=== PATIENT | male | born 1980 | race Caucasian/White ===

== ENCOUNTER 2019-12-18 10:26 | Emergency (ER) | payer OTHER, SELFPAY ==
[2019-12-18] VITALS (10 sets, daily range): BP systolic 91–123; BP diastolic 62–83; PULSE 52–92; RESP 16–22; TEMP 37.2; O2SAT 96–98
--- NOTE | ~2019-12-18 | XR_ITS ---
EXAMINATION: XR chest 1V portable EXAM DATE: 12/18/2019 12:17 INDICATION: Seizure. TECHNIQUE: Portable AP frontal chest x-ray was obtained. There is no prior study for comparison. FINDINGS: The lungs are clear. There are no pleural effusions. Cardiomediastinal silhouette is norm al. There is no pneumothorax suspected. The bones and soft tissues are unremarkable. IMPRESSION: No acute cardiopulmonary findings. Reviewed, dictated and finalized at location B.
--- NOTE | ~2019-12-18 | CT_ITS ---
EXAMINATION: CT brain wo con EXAM DATE: 12/18/2019 11:11 INDICATION: Seizure, left sided hematoma. Altered mental status. TECHNIQUE: Spiral CT of the head was performed without contrast. Axial, coronal and sagittal images were reviewed. The dose-length product (DLP) for this examination was 605.33 mGy-cm. The exposure w as tailored according to patient size, and iterative reconstruction (ASIR) was used as additional dos e reduction technique. There is no prior study for comparison. FINDINGS: There is no acute intraparenchymal hemorrhage. No evidence of intraparenchymal brain mass lesion. No evidence of acute infarction. There is no mass effect or midline shift. The ventricles are normal in size. There are no extra-axial collections. There are no acute calvarial fractures. T he orbits are unremarkable. Soft tissue is unremarkable. The visualized sinuses and mastoid air ramo ls are well aerated. IMPRESSION: 1. No acute intracranial findings. Reviewed, dictated and finalized at location A.
--- NOTE | 2019-12-18 10:37 | ED.SEIZURE ---
HPI - Seizure General Chief Complaint: Seizure Stated Complaint: SZ Time Seen by Provider: 12/18/19 10:28 Source: patient, EMS and RN notes reviewed Mode of arrival: EMS Limitations: other (pt is post-ictal) History of Present Illness HPI Narrative: Pt is a 39 y/o male with a Hx of seizures, who presents to the ED via EMS with c/o seizure happening earlier today. He notes that he is currently prescribed Keppra for his seizures, but states that he has recently been in correction and hasn't taken the medication for the past week. According to the nurse, the pt was seizing throughout the night last night. EMS notes that the pt then sustained a roughly 2 minute long seizure this morning. The nurse states that the pt was unresponsive to sternal rub this morning, which prompted him to be sent to the ED. Pt currently reports a lt sided headache, nausea, and SOB, but denies any CP or ABD pain. HPI limited due to the pt being post-ictal. MD complaint: seizure Duration of episode: 2 -: minutes(s) Seizure History: Yes Place: correction Possible Precipitating Event: other (lack of Keppra) Associated symptoms: shortness of breath and other (lt sided headache; nausea) Related Data Home Medications Medication Instructions Recorded Confirmed levetiracetam 1,000 mg PO 12/18/19 Allergies Allergy/AdvReac Type Severity Reaction Status Date / Time No Known Allergies Allergy Verified 12/18/19 11:21 Review of Systems Review of Systems: All systems reviewed & are unremarkable except as noted in HPI and below Cardiovascular: Cardiovascular: Denies chest pain Respiratory: Respiratory: Reports dyspnea Gastrointestinal: Gastrointestinal: Denies abdominal pain and Reports nausea Neurologic: Reports headache(s) (lt sided) and Reports other (seizure) [facility] Past Medical History Medical History Seizures Surgical History Surgical History No significant past surgical history Social History Social History Smoking packs per day: 1 Smoking cigarettes per day: 20.0 Smoking status: Current every day smoker Substance use type: marijuana Gender identity (if verbalized by the patient): Male Exam Const: General: no acute distress and alert HENMT: Head: normocephalic and other (left forehead hematoma) Ears: hearing grossly normal bilaterally and external ears normal General nose exam: Normal external nose present and Normal nares present Face and sinus: sinuses nontender and face symmetric Mouth: Yes Normal oral and palatal mucosa present Throat: posterior oropharynx normal Eyes: Conjunctivae: conjunctivae normal Pupils: Equal, round and reactive pupils present EOM: EOMs intact bilaterally Resp: Effort & Inspection: normal respiratory effort, not tachypneic and no use of accessory muscles Auscultation: clear to auscultation bilaterally Cardio: Rate: regular rate Rhythm: regular rhythm Heart sounds: no murmurs Skin: General skin exam: normal color Rashes: no rashes Neuro: General: moves all extremities, no focal motor deficits and CN's II-XI intact bilaterally Speech: normal speech Other: oriented to self and place Course Reevaluation(s) Reevaluation #1: Patient is now able to answer all questions. His father is at bedside and he states patient is at baseline and he appears to be normal. Patient has leukocytosis which is likely stress reaction. Date: 12/18/19 Time: 14:36 Vital Signs Vital signs: Vital Signs Pulse Rate 59 L 12/18/19 10:33 Respiratory Rate 19 12/18/19 10:33 Blood Pressure 116/83 12/18/19 10:33 Pulse Oximetry 96 12/18/19 10:33 Temperature 99 F 12/18/19 10:35 Pulse Rate 71 12/18/19 14:47 Respiratory Rate 20 12/18/19 14:47 Blood Pressure 103/65 12/18/19 14:47 Pulse Oximetry 98 12/18/19 14:47 MDM - Seizure Lab Data R
--- NOTE | 2019-12-18 10:45 | ECG_ITS ---
Measurements Intervals [place] Rate: 57 P: 37 WI: 186 QRS: 49 QRSD: 100 T: 43 QT: 387 QTc: 377 Interpretive Statements SINUS BRADYCARDIA WITH SINUS ARRHYTHMIA BASELINE ARTIFACT- I, II, III, AVR, V2 BORDERLINE ECG Electronically Signed On 12-18-2019 11:37:42 CDT by Jerome Spence D.O.
[2019-12-18] MEDS: LACTATED RINGERS 1,000 ML 999 ML IV CONT (11:17)
[2019-12-18] MEDS: levETIRAcetam 1000MG/NACL100ML 1,000 MG/100 ML BAG 400 MG IVPB (11:17)
[2019-12-18 11:46] LABS: Basophils Percent Auto 0.2 % (0.2-1.2); Hematocrit 45.1 % (42.0-52.0); Hemoglobin 14.8 g/dL (14.0-18.0); Immature Granulocyte Absolute 0.08 K/mm3 (0.00-0.031); Immature Granulocyte Percent A 0.4 % (0-0.5); Lymphocytes Absolute Auto 0.64 K/mm3 (0.9-3.2); Lymphocytes Percent Auto 2.9 % (18.3-44.2); Mean Corpuscular HGB Conc 32.8 g/dl (32-36); Mean Corpuscular Hemoglobin 31.2 pg (26-34); Mean Corpuscular Volume 95.1 fl (80-100); Mean Platelet Volume 9.6 fl (7.4-10.4); Monocytes Absolute Auto 1.5 K/mm3 (0.1-0.6); Monocytes Percent Auto 6.5 % (2.6-8.5); Neutrophils Absolute Auto 20.1 K/mm3 (1.3-6.7); Platelet Count Result 270 k/mm3 (150-375); Red Blood Count 4.74 M/mm3 (4.6-6.20); Red Cell Distribution Width 13.7 % (11.5-14.5); White Blood Count 22.3 K/mm3 (4.5-10.0)
[2019-12-18 11:58] LABS: Alanine Aminotransferase 17 U/L (4-50); Albumin Level 4.5 g/dL (3.5-5.1); Alkaline Phosphatase 80 U/L (38-126); Aspartate Amino Transferase 31 U/L (17-59); Bilirubin,Total 0.5 mg/dL (0.2-1.3); Blood Urea Nitrogen 17 mg/dL (9-20); Calcium 9.7 mg/dL (8.4-10.2); Carbon Dioxide 26 mmol/L (22-30); Chloride 104 mmol/L (98-107); Estimated CRCL calculation 74 ml/min; Estimated Glomerular Filt Rate > 60; Glucose 102 mg/dL (75-110); Sodium 138 mmol/L (137-145)
[2019-12-18 13:29] LABS: Add Urine Microscopic? YES; Amorphous Sediment Urine Few; Appearance Urine Turbid (Clear); Bilirubin Urine Negative (Negative); Blood Urine Negative (Negative); Color Urine Yellow (Yellow); Glucose Urine UA Negative (Negative); Ketones Urine Trace mg/dL (Negative); Leukocyte Esterase Ur Negative LEU/UL (Negative); Mucus Urine Rare /lpf; Nitrate Urine Negative (Negative); Protein Urine 1+ mg/dL (Negative); RBC Urine 0-2 /hpf (0-2); Specific Grav Ur 1.019 (1.001-1.035); Urobilinogen Urine Negative mg/dL (<2.0)
[2019-12-18 13:54] LABS: Barbiturate Screen Urine Negative (Negative); Benzodiazepines Screen Urine Negative (Negative)
[2019-12-18 13:56] LABS: Amphetamine Screen Urine Negative (Negative); Cannabinoid Screen Urine Positive (Negative); Cocaine Screen Urine Negative (Negative); Methadone Screen Urine Negative (Negative); Opiate Screen Urine Negative (Negative); Phencyclidine Screen Urine Negative (Negative)
== END 2019-12-18 14:48 | disposition home or self-care (01) ==
PROVIDERS: Emergency Provider General Practice
DX: G40.909 Epilepsy, unspecified, not intractable, without status epilepticus (principal); F17.210 Nicotine dependence, cigarettes, uncomplicated
CPT/HCPCS: 36415; 70450; 71045; 80053; 80307; 81001; 85025; 93005; 96361; 96365; 96375; 99284; J0131; J1953; J7120

== ENCOUNTER 2020-09-12 12:49 | Emergency (ER) | payer OTHER, SELFPAY ==
--- NOTE | ~2020-09-12 | CT_ITS ---
EXAMINATION: CT brain wo con DATE: 09/12/2020 13:35 INDICATION: Seizure TECHNIQUE: Computed tomography (CT) of the head was performed without intravenous contrast. Sagittal and coronal reconstructions were performed. The mA was adjusted according to patient size. Iterative reconstruction technique was employed. The dose-length product was 605.33 mGy-cm. COMPARISON: head CT dated 12/18/2019 FINDINGS: No acute intracranial hemorrhage, acute infarction or abnormal extra axial fluid collection. Ventricl es are normal and symmetric. No mass/mass effect. The orbits, paranasal sinuses and mastoid air cells are normal. IMPRESSION: 1. Normal head CT. Reviewed, dictated and finalized at location A. RDS MANAGEMENT COORDINATOR IMPRESSION: 1. Normal head CT.
[2020-09-12 12:53] VITALS: BP 112/74; PULSE 96; RESP 16; O2SAT 96
[2020-09-12 13:07] VITALS: BP 107/71; PULSE 80; RESP 22; O2SAT 95
[2020-09-12] MEDS: levETIRAcetam 1000MG/NACL100ML 1,000 MG/100 ML BAG 400 MG IVPB (13:10)
--- NOTE | 2020-09-12 13:10 | ECG_ITS ---
Measurements Intervals [place] Rate: 81 P: 62 MI: 146 QRS: 56 QRSD: 96 T: 58 QT: 352 QTc: 411 Interpretive Statements SINUS RHYTHM WITH SINUS ARRHYTHMIA PEAKED T WAVES- CONSIDER HYPERKALEMIA OR ISCHEMIA BASELINE ARTIFACT- I, II, III, AVR, AVL, AVF, V1, V6 ABNORMAL ECG Electronically Signed On 09-12-2020 16:41:53 YARD DEMURRAGE CLERK by Jerome Spence D.O.
[2020-09-12 13:12] VITALS: BP 112/74; PULSE 80; RESP 18; TEMP 36.4; O2SAT 96
[2020-09-12 13:17] LABS: Basophils Absolute Auto 0.1 K/mm3 (0.0-0.1); Basophils Percent Auto 0.4 % (0.2-1.2); Eosinophils Percent Auto 0.1 % (0-4.4); Hematocrit 48.6 % (42.0-52.0); Hemoglobin 16.7 g/dL (14.0-18.0); Immature Granulocyte Absolute 0.05 K/mm3 (0.00-0.031); Immature Granulocyte Percent A 0.3 % (0-0.5); Lymphocytes Absolute Auto 0.82 K/mm3 (0.9-3.2); Lymphocytes Percent Auto 5.4 % (18.3-44.2); Mean Corpuscular HGB Conc 34.4 g/dl (32-36); Mean Corpuscular Hemoglobin 32.1 pg (26-34); Mean Corpuscular Volume 93.5 fl (80-100); Mean Platelet Volume 9.3 fl (7.4-10.4); Monocytes Absolute Auto 0.8 K/mm3 (0.1-0.6); Monocytes Percent Auto 5.2 % (2.6-8.5); Neutrophils Absolute Auto 13.5 K/mm3 (1.3-6.7); Neutrophils Percent Auto 88.6 % (45.5-73.1); Platelet Count Result 302 k/mm3 (150-375); Red Cell Distribution Width 13.4 % (11.5-14.5); White Blood Count 15.2 K/mm3 (4.5-10.0)
--- NOTE | 2020-09-12 13:17 | PC.NURSE ---
Per [employer] officer pt's mother paid his david and he is no longer in custody.
[2020-09-12 13:28] LABS: Anion Gap 11 mmol/L (8-16); Blood Urea Nitrogen 19 mg/dL (9-20); Carbon Dioxide 26 mmol/L (22-30); Chloride 103 mmol/L (98-107); Estimated CRCL calculation 79 ml/min; Estimated Glomerular Filt Rate > 60; Glucose 118 mg/dL (75-110); Potassium 4.4 mmol/L (3.4-5.0); Sodium 140 mmol/L (137-145)
--- NOTE | 2020-09-12 13:32 | PC.NURSE ---
Pt to CT via stretcher.
--- NOTE | 2020-09-12 13:53 | ED.GENADULT ---
HPI - General Adult General Chief complaint: Seizure Stated complaint: SEIZURE History of Present Illness HPI narrative: Patient is a 40-year-old male who presents ER after having a seizure while in detention. Patient was in custody and refused Keppra administration from the staff. He does have history of epilepsy. He was waiting for his mom to bail him out today but he had a seizure before that could occur. Reports pain to his head where there is obvious signs of him striking the ground. Denies any other issues at this time. Related Data Home Medications Medication Instructions Recorded Confirmed levetiracetam 1,000 mg PO 12/18/19 Allergies Allergy/AdvReac Type Severity Reaction Status Date / Time No Known Allergies Allergy Verified 09/12/20 13:22 Review of Systems Review of Systems: All systems reviewed & are unremarkable except as noted in HPI and below Constitutional: Constitutional: Denies chills, Denies fever(s) and Denies weakness ENT: Denies nasal congestion and Denies sore throat Cardiovascular: Cardiovascular: Denies chest pain and Denies radiating jaw, neck or arm pain Respiratory: Respiratory: Denies cough and Denies dyspnea Neurologic: Reports headache(s), Denies focal weakness and Denies numbness Comments: Seizure PMFSH Past Medical History Medical History (Updated 09/12/20 @ 14:51 by Woo Funez MD) Seizures Surgical History Surgical History No significant past surgical history Social History Social History Smoking packs per day: 1 Smoking cigarettes per day: 20.0 Smoking status: Current every day smoker Substance use type: marijuana Gender identity (if verbalized by the patient): Male Exam Narrative: Exam Narrative: GENERAL: Well-appearing, well-nourished, and in no acute distress. HEAD: Normocephalic, abrasions to the top of the head as well as forehead. EYES: PERRLA and EOMI. ENT: Mucous membranes moist. NECK: Supple. CHEST: Clear to auscultation. No respiratory distress. HEART: Regular rate and rhythm. No murmur heard. Normal peripheral pulses. ABDOMEN: Soft, nontender, nondistended. EXTREMITIES: Normal range of motion. No edema. NEURO: No focal deficits. Alert and oriented x3.. Course Course Emergency Course: Patient no longer in police custody. Has no complaints. Loaded with Keppra. Reports he has access to medication at home. Discharge at this time. Vital Signs Vital signs: Vital Signs Temperature 97.5 F L 09/12/20 13:12 Pulse Rate 80 09/12/20 13:12 Respiratory Rate 18 09/12/20 13:12 Blood Pressure 112/74 09/12/20 13:12 Pulse Oximetry 96 09/12/20 13:12 Temperature 97.5 F L 09/12/20 13:12 Pulse Rate 80 09/12/20 13:12 Respiratory Rate 18 09/12/20 13:12 Blood Pressure 112/74 09/12/20 13:12 Pulse Oximetry 96 09/12/20 13:12 Medical Decision Making Vital Signs Vital Signs: Vital Signs Temperature 97.5 F L 09/12/20 13:12 Pulse Rate 80 09/12/20 13:12 Respiratory Rate 18 09/12/20 13:12 Blood Pressure 112/74 09/12/20 13:12 Pulse Oximetry 96 09/12/20 13:12 Temperature 97.5 F L 09/12/20 13:12 Pulse Rate 80 09/12/20 13:12 Respiratory Rate 18 09/12/20 13:12 Blood Pressure 112/74 09/12/20 13:12 Pulse Oximetry 96 09/12/20 13:12 Lab Data Result diagrams: 09/12/20 13:10 09/12/20 13:10 Labs: Lab Results 09/12/20 09/12/20 Range/Units 13:10 13:10 WBC 15.2 H (4.5-10.0) K/mm3 RBC 5.20 (4.6-6.20) M/mm3 Hgb 16.7 (14.0-18.0) g/dL Hct 48.6 (42.0-52.0) % MCV 93.5 (80-100) fl MCH 32.1 (26-34) pg MCHC 34.4 (32-36) g/dl RDW 13.4 (11.5-14.5) % Plt Count 302 (150-375) k/mm3 MPV 9.3 (7.4-10.4) fl Immature Gran % (Auto) 0.3 (0-0.5) % Neut % (Auto) 88.6 H (45.5-73.1) % Lymph % (Auto) 5.4 L (18.3-44.2) % Mo
[2020-09-12 14:38] VITALS: BP 111/67; PULSE 101; RESP 17; O2SAT 98
[2020-09-12 14:45] VITALS: PULSE 68; RESP 18
[2020-09-12 15:00] VITALS: PULSE 65; RESP 18; O2SAT 97
== END 2020-09-12 15:05 | disposition home or self-care (01) ==
PROVIDERS: Emergency Provider Emergency Medicine
DX: G40.909 Epilepsy, unspecified, not intractable, without status epilepticus (principal); F17.210 Nicotine dependence, cigarettes, uncomplicated; R94.31 Abnormal electrocardiogram [ECG] [EKG]
CPT/HCPCS: 36415; 70450; 80048; 85025; 93005; 96365; 99284; J1953

== ENCOUNTER 2020-09-20 06:34 | Outpatient (CLI) | payer OTHER, SELFPAY ==
--- NOTE | 2020-09-20 12:22 | P.NEURO_ITS ---
Neurology EEG Report General Information Date of Study: 09/20/20 TEST eeg DIAGNOSIS seizures CONDITION OF RECORDING awake drowsy and sleep EEG NUMBER [id number]- CLINICAL HISTORY patient reported that he had grand mal seizures which started about 4 years ago. Usually well controlled except when under extra stress. EEG DESCRIPTION basic resting occipital frequency consists of 8 to 10 hertz per 2nd alpha of medium voltage admixed with low-voltage 15 to 18 hertz per 2nd beta. Bilateral symmetrical sleep activity seen during sleep. Hyperventilation not done. Photic stimulation produced normal drive. Non paroxysmal. Nonfocal. Nonlatera lizing. IMPRESSION no significant abnormalities noted
== END 2020-09-20 06:35 | disposition home or self-care (01) ==
LOC: ANHNEURO 06:37
PROVIDERS: PCP Internal Medicine Infectious Disease; Visit Provider Psychiatry & Neurology Neurology
DX: R56.9 Unspecified convulsions (principal)
CPT/HCPCS: 95816

== ENCOUNTER 2022-07-15 09:52 | Emergency (ER) | payer BC, OTHER, SELFPAY ==
--- NOTE | ~2022-07-15 | CT_ITS ---
EXAMINATION: CT brain wo con DATE: 07/15/2022 10:19 INDICATION: Seizure. TECHNIQUE: Computed tomography (CT) of the head was performed without intravenous contrast. The mA wa s adjusted according to patient size. Iterative reconstruction technique was employed. The dose-lengt h product was 605.33 mGy-cm. COMPARISON: Head CT 09/12/2020 FINDINGS: There is no intracranial hemorrhage, acute infarction, or abnormal intracranial mass lesion . The ventricles are normal in size. There is mild mucosal thickening in the paranasal sinuses. The o rbits are normal. The mastoid air cells are normal. IMPRESSION: 1. Normal brain. Reviewed, dictated and finalized at location A. IMPRESSION: 1. Normal brain.
--- NOTE | 2022-07-15 09:49 | ED.SEIZURE ---
HPI - Seizure General Chief Complaint: Seizure Stated Complaint: Seizure Source: patient and EMS Mode of arrival: EMS Limitations: no limitations History of Present Illness HPI Narrative: Patient is a 42-year-old male with history of seizure disorder on Keppra presenting to the emergency department for evaluation of witnessed seizure this morning. Patient states that he was at a court hearing when he lost consciousness, having a witnessed tonic-clonic seizure. EMS was contacted, patient was postictal at the time of their arrival. At the time of arrival to the emergency department, patient is awake, alert, oriented. He denies any complaint aside from mild headache pain. Patient does have abrasions to his face. He denies tongue laceration. No urinary incontinence. Patient states he usually takes Keppra twice daily but missed his dose last night. He denies recent illness, fever, chills, abdominal pain, nausea, vomiting or urinary symptoms. Patient denies any extremity pain. He is unsure of his tetanus status. Related Data Home Medications Medication Instructions Recorded Confirmed levetiracetam 1,000 mg tablet 1,000 mg PO 12/18/19 09/18/21 Allergies Allergy/AdvReac Type Severity Reaction Status Date / Time poison norman extract Allergy Intermediate Rash Verified 07/15/22 10:03 Review of Systems Review of Systems: CONSTITUTIONAL: Denies fever, chills, or sweats. EYES: Denies visual changes, redness, or discharge. ENT: Denies rhinorrhea, congestion, sore throat, or otalgia. CARDIOVASCULAR: Denies chest pain, palpitations, or edema. RESPIRATORY: Denies cough or dyspnea. GASTROINTESTINAL: Denies abdominal pain, nausea, vomiting, or diarrhea. GENITOURINARY: Denies dysuria or hematuria. SKIN: Denies rash or itching. Reports forehead abrasion. MUSCULOSKELETAL: Denies back pain, joint pain, or myalgia. NEUROLOGIC: Denies headache, numbness, or weakness. [facility] Past Medical History Medical History Carpal tunnel syndrome Seizures Surgical History Surgical History No significant past surgical history Social History Social History Smoking packs per day: 1 Smoking cigarettes per day: 20.0 Smoking status: Current every day smoker Substance use type: marijuana Gender identity (if verbalized by the patient): Male Exam Narrative: GENERAL: Awake, alert, conversant HEAD: Normocephalic, abrasion to nasal bridge and left forehead. No laceration. EYES: PERRLA and EOMI. ENT: Nares clear, no rhinorrhea or epistaxis. Mucous membranes moist. Eye is in alignment. No malocclusion. NECK: Supple. No cervical spinal tenderness, no step-offs or deformities. CHEST: No respiratory distress, breathing even and non labored HEART: Regular rate, sinus rhythm ABDOMEN:Non distended, non tender EXTREMITIES: Normal range of motion. No edema. SKIN: Warm, dry, no rash. NEURO:No focal deficits. Alert and oriented x3 Course Vital Signs Vital signs: Vital Signs Temperature 36.7 C 07/15/22 09:50 Pulse Rate 67 07/15/22 09:50 Respiratory Rate 21 H 07/15/22 09:50 Blood Pressure 107/83 07/15/22 09:50 Pulse Oximetry 96 07/15/22 09:50 Oxygen Delivery Room Air 07/15/22 09:50 Temperature 36.7 C 07/15/22 09:50 Pulse Rate 69 07/15/22 12:03 Respiratory Rate 20 07/15/22 12:03 Blood Pressure 98/72 L 07/15/22 12:03 Pulse Oximetry 99 07/15/22 12:03 Oxygen Delivery Room Air 07/15/22 09:50 MDM - Seizure MDM Narrative Medical decision making narrative: Patient presented for evaluation of seizure in the setting of known seizure disorder. At the time of assessment, ABCs are intact and vital signs are stable. No prolonged post ictal state. Pt mentating at baseline with a normal neurological exam. Pt laboratory results reassuring. EKG without
[2022-07-15 09:50] VITALS: BP 107/83; PULSE 67; RESP 21; TEMP 36.7; O2SAT 96
[2022-07-15 09:58] VITALS: PULSE 74
--- NOTE | 2022-07-15 09:58 | ECG_ITS ---
Measurements Intervals [place] Rate: 70 P: 37 CO: 176 QRS: 40 QRSD: 98 T: 26 QT: 372 QTc: 403 Interpretive Statements SINUS RHYTHM INCOMPLETE RIGHT BUNDLE BRANCH BLOCK BORDERLINE ECG COMPARED TO ECG 09/12/2020 12:57:36 PEAKED T WAVES RESOLVED Electronically Signed On 07-15-2022 11:43:02 CDT by Jerome Spence D.O.
[2022-07-15 10:25] LABS: Basophils Percent Auto 0.5 % (0.2-1.2); Eosinophils Absolute Auto 0.1 K/mm3 (0-0.3); Eosinophils Percent Auto 1.2 % (0-4.4); Hematocrit 48.1 % (42.0-52.0); Immature Granulocyte Absolute 0.02 K/mm3 (0.00-0.031); Immature Granulocyte Percent A 0.3 % (0-0.5); Lymphocytes Absolute Auto 1.06 K/mm3 (0.9-3.2); Mean Corpuscular HGB Conc 33.3 g/dl (32-36); Mean Corpuscular Hemoglobin 31.7 pg (26-34); Mean Corpuscular Volume 95.2 fl (80-100); Mean Platelet Volume 9.3 fl (7.4-10.4); Monocytes Absolute Auto 0.4 K/mm3 (0.1-0.6); Monocytes Percent Auto 5.9 % (2.6-8.5); Neutrophils Percent Auto 76.1 % (45.5-73.1); Platelet Count Result 284 k/mm3 (150-375); Red Blood Count 5.05 M/mm3 (4.6-6.20); Red Cell Distribution Width 13.6 % (11.5-14.5); White Blood Count 6.6 K/mm3 (4.5-10.0)
[2022-07-15] MEDS: SODIUM CHLORIDE 0.9% IV 1,000 ML 999 ML IV CONT (10:31)
[2022-07-15] MEDS: levETIRAcetam 1000MG/NACL100ML 1,000 MG/100 ML BAG 400 MG IVPB (10:31)
[2022-07-15] MEDS: ACETAMINOPHEN 500 MG TABLET 1000 MG PO (10:32)
[2022-07-15] MEDS: TETANUS,DIPHTHERIA,AC PERTUSSIS ADULT (0.5 ML) BOOSTRIX IM (10:34)
[2022-07-15 10:40] LABS: Alanine Aminotransferase 23 U/L (6-50); Albumin Level 4.9 g/dL (3.5-5.1); Alkaline Phosphatase 74 U/L (38-126); Anion Gap 18 mmol/L (8-16); Aspartate Amino Transferase 33 U/L (17-59); Bilirubin,Total 0.5 mg/dL (0.2-1.3); Blood Urea Nitrogen 18 mg/dL (9-20); Calcium 9.6 mg/dL (8.4-10.2); Carbon Dioxide 22 mmol/L (22-30); Chloride 102 mmol/L (98-107); Estimated CRCL calculation 78 ml/min; Estimated Glomerular Filt Rate > 60; Glucose 128 mg/dL (65-110); Sodium 142 mmol/L (137-145)
[2022-07-15 10:57] LABS: Appearance Urine Clear (Clear); Bilirubin Urine Negative (Negative); Blood Urine Trace-lysed (Negative); Color Urine Yellow (Yellow); Glucose Urine UA Negative (Negative); Ketones Urine Negative (Negative); Leukocyte Esterase Ur Negative LEU/UL (Negative); Nitrate Urine Negative (Negative); Protein Urine 3+ mg/dL (Negative); Specific Grav Ur >= 1.030 (1.001-1.035); Urobilinogen Urine 0.2 mg/dL (<2.0); pH Urine 5.5 (5.0-9.0)
[2022-07-15 11:07] LABS: Mucus Urine Rare /lpf; RBC Urine 21-50 /hpf (0-2); WBC Urine 51-75 /hpf
[2022-07-15 11:11] LABS: Add Urine Microscopic? YES
[2022-07-15 11:51] VITALS: BP 100/72; PULSE 61; RESP 19; O2SAT 99
[2022-07-15 12:03] VITALS: BP 98/72; PULSE 69; RESP 20; O2SAT 99
[2022-07-19 19:26] LABS: Levetiracetam Keppra <2.0 mcg/mL (6.0-46.0)
== END 2022-07-15 12:04 | disposition home or self-care (01) ==
PROVIDERS: Emergency Provider Emergency Medicine; PCP Internal Medicine Infectious Disease
DX: G40.909 Epilepsy, unspecified, not intractable, without status epilepticus (principal); Z23 Encounter for immunization; F17.210 Nicotine dependence, cigarettes, uncomplicated; I45.10 Unspecified right bundle-branch block
CPT/HCPCS: 36415; 70450; 80053; 80177; 81001; 85025; 87086; 90471; 90715; 93005; 96361; 96365; 99284; A9270; J1953; J7030

== ENCOUNTER 2023-12-24 16:03 | Outpatient (CLI) | payer BC, SELFPAY ==
[2023-12-29 09:33] LABS: Levetiracetam Keppra 8.6 mcg/mL (6.0-46.0)
== END 2023-12-24 16:04 | disposition home or self-care (01) ==
LOC: ANHLAB 16:04
PROVIDERS: PCP Internal Medicine Infectious Disease; Visit Provider Student in an Organized Health Care Education/Training Program
DX: G40.909 Epilepsy, unspecified, not intractable, without status epilepticus (principal)
CPT/HCPCS: 36415; 80177

== ENCOUNTER 2024-11-23 13:20 | Outpatient (CLI) | payer BC, SELFPAY ==
--- OUTSIDE RECORDS SUMMARY | 2024-11-23 14:59 | XMS_ITS | CONTINUITY OF CARE DOCUMENT ---
Author Name macario sorto Address Unknown Organization [facility] Address [address] [place] [address] Phone [phone] Care Team Providers Care Colored Leather Setter Name Role Phone Ace Banegas MD Unavailable SHAWNA MARTINI MD Unavailable [phone] INSURANCE PROVIDERS Payer name Policy type / Coverage type [place] red constitution party ID [facility] [id number]
--- OUTSIDE RECORDS SUMMARY | 2024-11-23 14:59 | XMS_ITS | Clinical Summary ---
Author Organization [facility] on Address [address] [place] [address] Phone Care Team Providers Care Saloon Keeper Name Role Phone Marcus Morley MD Primary Care Provider [phone] Allergies No known active allergies Medications levETIRAcetam (KEPPRA) 500 mg tablet Take 2 Tablets (1,000 mg) by mouth 2 times daily. 60 Tablet 09/15/2017 Active LORazepam (ATIVAN) 1 mg tablet Take 1 Tablet (1 mg) by mouth every 8 hours. 9 Tablet 06/11/2018 Active Active Problems Problem Noted Date Diagnosed Date Seizure disorder 03/26/2018 Acute metabolic encephalopathy 03/26/2018 Tobacco use 05/29/2015 Brain lesion Non-compliance Facial spasm Family History Medical History Relation Name Comments Healthy Father Healthy Mother Relation Name Status Comments Father Alive Mother Alive Social History Tobacco Use Types Packs/Day Years Used Date Smoking Tobacco: Every Day Cigarettes Smokeless Tobacco: Never Alcohol Use Standard Drinks/Week Comments No 0 (1 standard drink = 0.6 oz pur e alcohol) rare Sex and Gender Information Value Date Recorded Sex Assigned at Not on file Legal Sex Male 3:22 PM CDT Gender Identity Not on file Sexual Orientation Not on file Last Filed Vital Signs Vital Sign Reading Time Taken Comments Blood Pressure 116/75 06/11/2018 9:20 AM CDT Pulse 84 06/11/2018 9:20 AM CDT Temperature 37.2 C (99 F) 06/11/2018 8:40 AM CDT Respiratory Rate 16 06/11/2018 9:20 AM CDT Oxygen Saturation 95% 06/11/2018 9:20 AM CDT Inhaled Oxygen Concentration - - Weight 63.5 kg (140 lb) 06/11/2018 8:40 AM CDT Height 167.6 cm (5' 6 ) 06/11/2018 8:40 AM CDT Body Mass Index 22.6 06/11/2018 8:40 AM CDT Plan of Treatment Health Maintenance Due Date Last Done Comments PNEUMOCOCCAL VACCINE 0-49 YEARS (1 of 2 - PCV) 1986 HEPATITIS B VACCINES (1 of 3 - 19+ 3-dose series) 1999 INFLUENZA VACCINE (#1) 2024 06/07/2017 DTAP/TDAP/TD VACCINES (3 - T d or Tdap) 06/07/2027 06/07/2017, 01/10/2016 HPV VACCINES Aged Out No longer eligi ble based on patient's age to complete this topic Insurance [employer] [place] Advance Directives For more information, please contact: [phone] * Full Code (Latest Code Status on File) Date Activated Date Inactivated Comments 03/26/2018 5:22 PM 03/29/2018 6:21 PM Care Teams Saloon Keeper Relationship Specialty Start Date End Date Marcus Morley MD [address] [place] [address] PCP - General Internal Medicine 03/21/18
--- OUTSIDE RECORDS SUMMARY | 2024-11-23 15:00 | XMS_ITS | Data Portability ---
Author Organization EDILBERTO PHILEmmanuel Soni Address [address] [place] [address] Assessment No assessment recorded. Plan of Treatment Reminders Order Date Submit Date Provider Last Modified By Organization Details Last Modified Time Details Appointments None recorded. Lab urinalysis , dipstick 2022 023 [facility], [address], [address], [place], [address], 3 06:18:19 lipid panel, serum 2022 023 [facility], [address], [address], [place], [address], 3 17:36:31 basic metabolic 1998 panel, serum or plasma 2022 023 [facility], [address], [address], [place], [address], 3 17:36:31 CBC 2022 023 [facility], [address], [address], [place], [address], 3 23:24:48 bun/creati nine, ratio, serum 2021 022 [facility], [address], [address], [place], [address], 2 06:11:48 CBC w/ auto diff 2021 [facility], [facility] [address], [address], [place], [address], 2 20:08:38 basic metabolic 1998 panel, serum or plasma 2021 [facility], [address] [place], [place] [address], [address], [place], [address], 20:08:36 urinalysis , complete [facility] [address] [place], [place] [address], [address], [place], [address], 20:08:37 drug screen, urine 2021 [facility], [address] [place] [address], [address], [place], [address], 20:08:38 rapid flu (A+B) 2020 021 [facility], [address], [place], [address], 1 14:31:09 SARS CoV 2 RNA (COVID-19) , QL, licensed pesticide applicator-PCR, respirator y specimen 2020 021 [facility], [address], [place], [address], 1 14:31:09 Referral None recorded. Procedures None recorded. Surgeries None recorded. Imaging None recorded. Medication Orders levetirace vergara 1,000 mg tablet 2022 023 [id number], [address] , [place], [place], [id number], 3 16:29:03 Keppra 1,000 mg tablet 2021 [facility] #[id number], [address], [place], [place], [id number], 15:12:44 Keppra 1,000 mg tablet 2021 022 [facility] #[id number], [address], [place], [place], [id number], 17:47:27 levetirace vergara 1,000 mg tablet 2020 021 [facility] #[id number], [address], [place], [place], [id number], 10:55:15 levofloxac in 750 mg tablet 2020 021 [facility] #[id number], [address], [place], [place], [id number], 16:13:22 Patient TargetsNo targets recorded. Patient Instructions Encounter Date Encounter Id Patient Instructions Last Modified By Organization Details Last Modified Time 10/23/2020 [id number] Quitting Tobacco : Care Instructions oajao Not available 10/23/2020 10:44:46 upper respirator y infection (cold): care instructions oajao Not available 10/23/2020 10:44:46 Most recent ER report, please Levofloxacin Labs ER with chest pain or SOB Follow up in 3 weeeks and PRN oajao Not available 10/23/2020 10:54:49 06/01/2022 [id number] epilepsy: care instructions oajao Not available 06/01/2022 16:26:39 Covid vaccine records Labs Stop smoking Continue Keppra Follow up in 6 months and PRN oajao Not available 06/01/2022 16:30:46 06/25/2022 [id number] influenza (flu) vaccine: care instructions oajao Not available 06/25/2022 14:19:39 epilepsy: care instructions oajao Not available 06/25/2022 14:36:19 Labs Follow up i n 6 month and PRN oajao Not available 06/25/2022 14:36:36 12/28/2022 [id number] Labs Bivalent COVID booster Stop smoking Follow up in 1 year and PRN oajao Not available 12/28/2022 16:39:58 06/01/2023 [id number] epilepsy: care instructions oajao Not available 06/01/2023 16:28:50 proteinuria: car e instructions oajao Not available 06/01/2023 16:25:59 [address] 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 He should set an alarm to remind himself to take his medication and continue taking some with him to work. oajao Not available 06/01/2023 16:45:44 Reason for Referral None Reported. Results Created Date Observation Date Name Description Value Unit Range Abnormal Flag Note LastModifiedBy Organization Detail LastModifiedTime 06/01/20 22 06/02/2022 BASIC METAB OLIC PANEL (7) glucose 78 mg/dL 65-99 Eff ectiv e Septe mber 2021 Gluco se refer ence* * inter princess will be lugo ing to: 70 - 99 Not Available [facility] ([facility]) [address] [place], [address], 06/02/2022 20:08:36 06/01/20 22 06/02/2022 BASIC METAB OLIC PANEL (7) BUN 30 mg/dL 6-24 above high normal Not Available [facility] ([facility]) [address] [place], [address], 06/02/2022 20:08:36 06/01/20 22 06/02/2022 BASIC METAB OLIC PANEL (7) creatinine 1.55 mg/dL 0.76-1 .27 above high normal Not Available [facility] ([facility]) [address] [facility], [place], [address], 06/02/2022 20:08:36 06/01/20 22 06/02/2022 BASIC METAB OLIC PANEL (7) eGFR 57 mL/mi n/1.7 3 >59 below low normal Not Available [facility] ([facility]) [address] [facility], [place], [address], 06/02/2022 20:08:36 06/01/20 22 06/02/2022 BASIC METAB OLIC PANEL (7) BUN/creatini ne ratio 19 - Not Available [facility] ([facility]) [address] [facility] [place], [address], 06/02/2022 20:08:36 06/01/20 22 06/02/2022 BASIC METAB OLIC PANEL (7) sodium 142 mmol/ L 134-14 4 Not Available [facility] ([facility]) [address] [facility] [place], [address], 06/02/2022 20:08:36 06/01/20 22 06/02/2022 BASIC METAB OLIC PANEL (7) potassium 4.7 mmol/ L 3.5-5. 2 Not Available [facility] ([facility]) [address] [facility], [place], [address], 06/02/2022 20:08:36 06/01/20 22 06/02/2022 BASIC METAB OLIC PANEL (7) chloride 103 mmol/ L 96-106 Not Available [facility] ([facility]) [address] [facility] [place], [address], 06/02/2022 20:08:36 06/01/20 22 06/02/2022 BASIC METAB OLIC PANEL (7) carbon dioxide, total 21 mmol/ L 20-29 Not Available [facility] ([facility]) [address] [facility] [place], [address], 06/02/2022 20:08:36 06/01/20 22 06/02/2022 URINA LYSIS , COMPL ETE specific gravity 1.026 1.005- 1.030 Not Available [facility] ([facility]) [address] [place], [address], 06/02/2022 20:08:37 06/01/20 22 06/02/2022 URINA LYSIS , COMPL ETE pH 5.5 5.0-7. 5 Not Available [facility] ([facility]) [address] [place], [address], 06/02/2022 20:08:37 06/01/20 22 06/02/2022 URINA LYSIS , COMPL ETE urine-color YELLOW yellow Not Available [facility] ([facility]) [address] [place], [address], 06/02/2022 20:08:37 06/01/20 22 06/02/2022 URINA LYSIS , COMPL ETE appearance CLEAR clear Not Available [facility] ([facility]) [address] [place], [address], 06/02/2022 20:08:37 06/01/20 22 06/02/2022 URINA LYSIS , COMPL ETE WBC esterase NEGATI VE negati ve Not Available [facility] ([facility]) [address] [place], [address], 06/02/2022 20:08:37 06/01/20 22 06/02/2022 URINA LYSIS , COMPL ETE protein NEGATI VE negati ve/tra ce Not Available [facility] ([facility]) [address] [place], [address], 06/02/2022 20:08:37 06/01/20 22 06/02/2022 URINA LYSIS , COMPL ETE glucose NEGATI VE negati ve Not Available [facility] ([facility]) [address] [place], [address], 06/02/2022 20:08:37 06/01/20 22 06/02/2022 URINA LYSIS , COMPL ETE ketones NEGATI VE negati ve Not Available [facility] ([facility]) [address] [place], [address], 06/02/2022 20:08:37 06/01/20 22 06/02/2022 URINA LYSIS , COMPL ETE occult blood NEGATI VE negati ve Not Available [facility] ([facility]) [address] [place], [address], 06/02/2022 20:08:37 06/01/20 22 06/02/2022 URINA LYSIS , COMPL ETE bilirubin NEGATI VE negati ve Not Available [facility] ([facility]) [address] [place], [address], 06/02/2022 20:08:37 06/01/20 22 06/02/2022 URINA LYSIS , COMPL ETE urobilinogen ,semi-qn 0.2 mg/dL 0.2-1. 0 Not Available [facility] ([facility]) [address] [place], [address], 06/02/2022 20:08:37 06/01/20 22 06/02/2022 URINA LYSIS , COMPL ETE nitrite, urine NEGATI VE negati ve Not Available [facility] ([facility]) [address] [place], [address], 06/02/2022 20:08:37 06/01/20 22 06/02/2022 URINA LYSIS , COMPL ETE microscopic examination COMMEN T Art escobar ws if indic ated. Not Available [facility] ([facility]) [address] [place], [address], 06/02/2022 20:08:37 06/01/20 22 06/02/2022 URINA LYSIS , COMPL ETE microscopic examination SEE BELOW: Micro scopi c was indic ated and was perfo rmed. Not Available [facility] ([facility]) [address] [place], [address], 06/02/2022 20:08:37 06/01/20 22 06/02/2022 CBC WITH DIFFE RENTI AL/PL ATELE T WBC 10.4 x10e3 /uL 3.4-10 .8 Not Available [facility] ([facility]) [address] [place], [address], 06/02/2022 20:08:38 06/01/20 22 06/02/2022 CBC WITH DIFFE RENTI AL/PL ATELE T RBC 4.76 x10e6 /uL 4.14-5 .80 Not Available [facility] ([facility]) [address] [place], [address], 06/02/2022 20:08:38 06/01/20 22 06/02/2022 CBC WITH DIFFE RENTI AL/PL ATELE T hemoglobin 15.2 g/dL 13.0-1 7.7 Not Available [facility] ([facility]) [address] [place], [address], 06/02/2022 20:08:38 06/01/20 22 06/02/2022 CBC WITH DIFFE RENTI AL/PL ATELE T hematocrit 46.0 % 37.5-5 1.0 Not Available [facility] ([facility]) [address] [place], [address], 06/02/2022 20:08:38 06/01/20 22 06/02/2022 CBC WITH DIFFE RENTI AL/PL ATELE T MCV 97 fL 79-97 Not Available [facility] ([facility]) [address] [place], [address], 06/02/2022 20:08:38 06/01/20 22 06/02/2022 CBC WITH DIFFE RENTI AL/PL ATELE T MCH 31.9 pg 26.6-3 3.0 Not Available [facility] ([facility]) [address] [place], [address], 06/02/2022 20:08:38 06/01/20 22 06/02/2022 CBC WITH DIFFE RENTI AL/PL ATELE T MCHC 33.0 g/dL 31.5-3 5.7 Not Available [facility] ([facility]) [address] [facility], [place], [address], 06/02/2022 20:08:38 06/01/20 22 06/02/2022 CBC WITH DIFFE RENTI AL/PL ATELE T RDW 13.6 % 11.6-1 5.4 Not Available [facility] ([facility]) [address] [facility], [place], [address], 06/02/2022 20:08:38 06/01/20 22 06/02/2022 CBC WITH DIFFE RENTI AL/PL ATELE T platelets 259 x10e3 /uL 150-45 0 Not Available [facility] ([facility]) [address] [place], [address], 06/02/2022 20:08:38 06/01/20 22 06/02/2022 CBC WITH DIFFE RENTI AL/PL ATELE T neutrophils 67 % notest ab. Not Available [facility] ([facility]) [address] [place], [address], 06/02/2022 20:08:38 06/01/20 22 06/02/2022 CBC WITH DIFFE RENTI AL/PL ATELE T lymphs 23 % notest ab. Not Available [facility] ([facility]) [address] [place], [address], 06/02/2022 20:08:38 06/01/20 22 06/02/2022 CBC WITH DIFFE RENTI AL/PL ATELE T monocytes 8 % notest ab. Not Available [facility] ([facility]) [address] [facility], [place], [address], 06/02/2022 20:08:38 06/01/20 22 06/02/2022 CBC WITH DIFFE RENTI AL/PL ATELE T eos 1 % notest ab. Not Available [facility] ([facility]) [address] [facility], [place], [address], 06/02/2022 20:08:38 06/01/20 22 06/02/2022 CBC WITH DIFFE RENTI AL/PL ATELE T basos 1 % notest ab. Not Available [facility] ([facility]) [address] [facility], [place], [address], 06/02/2022 20:08:38 06/01/20 22 06/02/2022 CBC WITH DIFFE RENTI AL/PL ATELE T neutrophils (absolute) 7.1 x10e3 /uL 1.4-7. 0 above high normal Not Available [facility] ([facility]) [address] [place], [address], 06/02/2022 20:08:38 06/01/20 22 06/02/2022 CBC WITH DIFFE RENTI AL/PL ATELE T lymphs (absolute) 2.3 x10e3 /uL 0.7-3. 1 Not Available [facility] ([facility]) [address] [place], [address], 06/02/2022 20:08:38 06/01/20 22 06/02/2022 CBC WITH DIFFE RENTI AL/PL ATELE T monocytes(ab solute) 0.8 x10e3 /uL 0.1-0. 9 Not Available [facility] ([facility]) [address] [facility], [place], [address], 06/02/2022 20:08:38 06/01/20 22 06/02/2022 CBC WITH DIFFE RENTI AL/PL ATELE T eos (absolute) 0.1 x10e3 /uL 0.0-0. 4 Not Available [facility] ([facility]) [address] [facility], [place], [address], 06/02/2022 20:08:38 06/01/20 22 06/02/2022 CBC WITH DIFFE RENTI AL/PL ATELE T baso (absolute) 0.1 x10e3 /uL 0.0-0. 2 Not Available [facility] ([facility]) [address] [facility], [place], [address], 06/02/2022 20:08:38 06/01/20 22 06/02/2022 CBC WITH DIFFE RENTI AL/PL ATELE T immature granulocytes 0 % notest ab. Not Available [facility] ([facility]) [address] [facility], [place], [address], 06/02/2022 20:08:38 06/01/20 22 06/02/2022 CBC WITH DIFFE RENTI AL/PL ATELE T immature grans (abs) 0.0 x10e3 /uL 0.0-0. 1 Not Available [facility] ([facility]) [address] [facility], [place], [address], 06/02/2022 20:08:38 06/01/20 22 06/01/2022 [id number] 0 7 DRUG- SCR drug screen comment: COMMEN T This miguel a sis is perfo rmed by immun oassa y. Posit terrell findi ngs are uncon firme d miguel a tical test resul ts; if resul ts do not suppo rt expec morteza clini susan findi ng, confi rmati on by an alter lona metho dolog y is recom silver d. Patie nt metab olic varia bles, speci fic drug chemi stry, and speci men maksim cteri stics can affec t test outco me. Techn ical consu ltati on is avail able at lonnie sheets [email or web address], or call toll free [phone]. Not Available [facility] ([facility]) [address] [place], [address], 06/02/2022 20:08:38 06/01/20 22 06/02/2022 [id number] 0 7 DRUG- SCR amphetamines , urine NEGATI VE NG/mL cutoff =1000 Amphe tamin e test inclu reji Amphe tamin e and Metha mphet amine . Not Available [facility] ([facility]) [address] [place], [address], 06/02/2022 20:08:38 06/01/20 22 06/02/2022 [id number] 0 7 DRUG- SCR barbiturates NEGATI VE NG/mL cutoff =200 Not Available [facility] ([facility]) [address] [place], [address], 06/02/2022 20:08:38 06/01/20 22 06/02/2022 [id number] 0 7 DRUG- SCR benzodiazepi lee NEGATI VE NG/mL cutoff =300 Not Available [facility] ([facility]) [address] [place], [address], 06/02/2022 20:08:38 06/01/20 22 06/02/2022 [id number] 0 7 DRUG- SCR cannabinoid POSITI VE NG/mL cutoff =50 abnormal Not Available [facility] ([facility]) [address] [place], [address], 06/02/2022 20:08:38 06/01/20 22 06/02/2022 [id number] 0 7 DRUG- SCR cocaine (metab.) NEGATI VE NG/mL cutoff =300 Not Available [facility] ([facility]) [address] [place], [address], 06/02/2022 20:08:38 06/01/20 22 06/02/2022 [id number] 0 7 DRUG- SCR opiates NEGATI VE NG/mL cutoff =300 Opiat e test inclu reji Codei ne and Morph ine only. Not Available [facility] ([facility]) [address], [place], [address], 06/02/2022 20:08:38 06/01/20 22 06/02/2022 [id number] 0 7 DRUG- SCR phencyclidin e NEGATI VE NG/mL cutoff =25 Not Available [facility] ([facility]) [address], [place], [address], 06/02/2022 20:08:38 06/01/20 22 06/02/2022 LITHO LINK CKD PROGR AM interpretati on NOTE ----- ----- ----- ----- ----- ----- - CHRON IC KIDNE Y DISEA SE: EGFR, BLOOD PRESS URE, AND PROTE INURI A ASSES SMENT We presu me eGFR has been less than 60 mL/mi n/1.7 3mE2 on at least two occas ions space d at least 3 month s apart . Curre nt eGFR is 57 mL/mi n/1.7 3mE2 corre spond ing to CKD stage 3a. Potas sium is withi n goal, 4.7 mmol/ L. EGFR, BLOOD PRESS URE, AND PROTE INURI A TREAT MENT SUGGE STION S - Guide lines recom mend a targe t blood press ure of 120/8 0 mmHg or less to reduc e cardi ovasc ular risk and CKD progr essio n. Asses sment of album inuri a (urin e album in:cr eatin ine ratio or urine prote in:cr eatin ine ratio prefe rred) is recom silver d at least annua lly in CKD patie nts for stagi ng and disea se progn osis. EGFR, BLOOD PRESS URE, AND PROTE INURI A FOLLO W-UP - Spot Urine Panel is recom silver d by guide lines , at least yearl y; fasti ng Renal Panel withi n 3 month s; BONE and UNIVERSITY SERVICES PROGRAM ASSOCIATE AL ASSES SMENT Carbo n Dioxi de is below goal, 21 mmol/ L. Guide lines recom mend the measu remen t of 25-hy droxy vitam in D in patie nts with CKD. BONE and UNIVERSITY SERVICES PROGRAM ASSOCIATE AL TREAT MENT HAL REYES S - If not on alkal i, begin sodiu m bicar bonat e, one 650 mg pill 2-3 times daily , other rousseau incre ase dose. Inter preta tions requi re simul taneo us measu remen ts of serum calci um and phosp horus . BONE and UNIVERSITY SERVICES PROGRAM ASSOCIATE AL FOLLO W-UP - fasti ng Renal Panel withi n 3 month s; fasti ng PTH with Renal Panel and 25-Hy droxy Vitam in D are recom silver d by guide lines , at least yearl y; LIPID S ASSES SMENT Most recen t order does not inclu de a fasti ng Lipid Panel . LIPID S FOLLO W-UP - fasti ng Lipid Panel is recom silver d by guide lines , at least yearl y; ANEMI A ASSES SMENT Hemog lobin is kale l, 15.2 g/dL. Hemog lobin targe t assum es VON is not in use. ANEMI A TREAT MENT HAL REYES S - No speci fic lugo e of treat ment is indic ated at this time. ANEMI A FOLLO W-UP - CBC withi n 12 month s; ----- ----- ----- ----- ----- ----- - DISCL AIMER These asses sment s and treat ment hal reyes s are provi ded as a conve nienc e in suppo rt of the physi sharon- patie nt relat ionsh ip and are not inten ded to repla ce the physi sharon' s clini susan judgm ent. They are deriv ed from natailyn nunez guide lines in addit ion to other evide nce and exper t opini on. The clini sharon shoul d consi betsy this infor matio n withi n the lizzie xt of clini susan opini on and the indiv idual patie nt. SEE LEV NCE FOR CHRON IC KIDNE Y DISEA SE PROGR AM: Kidne y Disea se Impro ving Globa l Outco mes (KDIG O) clini susan pract ice guide lines are at http: //kdi go.or g/hemal e/mona michaels es/. Natio nal Kidne y Found ation Kidne y Disea se Outco mes Quali ty Initi ative (KDOQ I (TM)) , with its limit ation s and discl aimer s, are at www.karly bess .org/ eun velasquez/K DOQI. This progr am is inten ded for patie nts who have been diagn osed with stage s 3, 4, or pre-d ialys is 5 CKD. It is not inten ded for child bartolo, pregn ant patie nts, or trans plant patie nts. Not Available [facility] ([facility]) [address] [facility], [place], [address], 06/02/2022 20:08:37 06/01/20 22 06/02/2022 LITHO LINK CKD PROGR AM pdf . Not Available [facility] ([facility]) [address] [facility], [place], [address], 06/02/2022 20:08:37 06/01/20 22 06/02/2022 MICRO SCOPI C EXAMI NATIO N WBC NONE SEEN /hpf 0-5 Not Available [facility] ([facility]) [address] [facility], [place], [address], 06/02/2022 20:08:36 06/01/20 22 06/02/2022 MICRO SCOPI C EXAMI NATIO N RBC NONE SEEN /hpf 0-2 Not Available [facility] ([facility]) [address] [facility], [place], [address], 06/02/2022 20:08:36 06/01/20 22 06/02/2022 MICRO SCOPI C EXAMI NATIO N epithelial cells (non renal) NONE SEEN /hpf 0-10 Not Available [facility] ([facility]) [address] [facility], [place], [address], 06/02/2022 20:08:36 06/01/20 22 06/02/2022 MICRO SCOPI C EXAMI NATIO N casts NONE SEEN /lpf nonese en Not Available [facility] ([facility]) [address] [facility], [place], [address], 06/02/2022 20:08:36 06/01/20 22 06/02/2022 MICRO SCOPI C EXAMI NATIO N bacteria NONE SEEN nonese en/few Not Available [facility] ([facility]) [address] [facility], [place], [address], 06/02/2022 20:08:36 06/25/20 22 06/26/2022 BUN+C REAT BUN 17 mg/dL 6-24 Not Available [facility] ([facility]) [address] [facility], [place], [address], 06/26/2022 06:11:48 06/25/20 22 06/26/2022 BUN+C REAT creatinine 1.04 mg/dL 0.76-1 .27 Not Available [facility] ([facility]) [address] [facility], [place], [address], 06/26/2022 06:11:48 06/25/20 22 06/26/2022 BUN+C REAT eGFR 92 mL/mi n/1.7 3 >59 Not Available [facility] ([facility]) [address] [facility], [place], [address], 06/26/2022 06:11:48 06/25/20 22 06/26/2022 BUN+C REAT BUN/creatini ne ratio 16 9-20 Not Available [facility] ([facility]) [address] [facility], [place], [address], 06/26/2022 06:11:48 06/01/20 23 06/01/2023 URINA LYSIS , ROUTI NE specific gravity See below: 1.005- 1.030 abnormal <=1.0 05 Not Available [facility] Department [address] [place], [address], 06/02/2023 06:18:19 06/01/20 23 06/01/2023 URINA LYSIS , ROUTI NE pH 8.0 5.0-7. 0 abnormal Not Available [facility] Department [address] [place], [address], 06/02/2023 06:18:19 06/01/20 23 06/01/2023 URINA LYSIS , ROUTI NE urine-color YELLOW yellow Not Available [facility] Department [address] [place], [address], 06/02/2023 06:18:19 06/01/20 23 06/01/2023 URINA LYSIS , ROUTI NE appearance CLOUDY abnormal Not Available [facility] Department [address] [place], [address], 06/02/2023 06:18:19 06/01/20 23 06/01/2023 URINA LYSIS , ROUTI NE WBC esterase Commen t NEGAT TERRELL Not Available [facility] Department [address] [place], [address], 06/02/2023 06:18:19 06/01/20 23 06/01/2023 URINA LYSIS , ROUTI NE protein 100 mg/dL neg/tr arie abnormal Not Available [facility] Department [address] [place], [address], 06/02/2023 06:18:19 06/01/20 23 06/01/2023 URINA LYSIS , ROUTI NE glucose Commen t mg/dL negati ve NEGAT TERRELL Not Available [facility] Department [address] [place], [address], 06/02/2023 06:18:19 06/01/20 23 06/01/2023 URINA LYSIS , ROUTI NE ketones Commen t NEGAT TERRELL Not Available [facility] Department [address] [place], [address], 06/02/2023 06:18:19 06/01/20 23 06/01/2023 URINA LYSIS , ROUTI NE occult blood LARGE abnormal Not Available [facility] Department [address] [place], [address], 06/02/2023 06:18:19 06/01/20 23 06/01/2023 URINA LYSIS , ROUTI NE bilirubin Commen t NEGAT TERRELL Not Available [facility] Department [address] [place], [address], 06/02/2023 06:18:19 06/01/20 23 06/01/2023 URINA LYSIS , ROUTI NE urobilinogen ,semi-qn 1.0 eu/dL 0.2-1. 0 Not Available [facility] Department [address], [place], [address], 06/02/2023 06:18:19 06/01/20 23 06/01/2023 URINA LYSIS , ROUTI NE nitrite, urine Commen t negati ve NEGAT TERRELL Not Available [facility] Department [address] [facility] [place], [address], 06/02/2023 06:18:19 06/01/20 23 06/01/2023 MICRO SCOPI C EXAMI NATIO N WBC Commen t NONE SEEN Not Available [facility] Department [address], [place], [address], 06/02/2023 06:18:19 06/01/20 23 06/01/2023 MICRO SCOPI C EXAMI NATIO N RBC 0-2 Not Available [facility] Department [address] [place], [address], 06/02/2023 06:18:19 06/01/20 23 06/01/2023 MICRO SCOPI C EXAMI NATIO N epithelial cells (non renal) Commen t OCCAS IONAL Not Available [facility] Department [address] [place], [address], 06/02/2023 06:18:19 09/19/06/01/2023 MICRO SCOPI C EXAMI NATIO N bacteria Commen t NONE SEEN Not Available [facility] Him Department [address], [place], [address], 06/02/2023 06:18:19 10/03/19 25 10/03/2024 Drugs ident ified in Urine by Scree n metho d amphetamines [presence] in urine Negati ve normal Not Available Not Available 17:21:45 10/03/19 25 10/03/2024 Drugs ident ified in Urine by Scree n metho d barbiturates [presence] in urine Negati ve normal Not Available Not Available 17:21:45 10/03/19 25 10/03/2024 Drugs ident ified in Urine by Scree n metho d benzodiazepi lee [presence] in urine Negati ve normal Not Available Not Available 17:21:45 10/03/19 25 10/03/2024 Drugs ident ified in Urine by Scree n metho d cocaine [presence] in urine Negati ve normal Not Available Not Available 17:21:45 10/03/19 25 10/03/2024 Drugs ident ified in Urine by Scree n metho d fentanyl Negati ve normal Not Available Not Available 17:21:45 10/03/19 25 10/03/2024 Drugs ident ified in Urine by Scree n metho d methadone [presence] in urine Negati ve normal Not Available Not Available 17:21:45 10/03/19 25 10/03/2024 Drugs ident ified in Urine by Scree n metho d opiates [presence] in urine Negati ve normal Not Available Not Available 17:21:45 10/03/19 25 10/03/2024 Drugs ident ified in Urine by Scree n metho d oxycodone [presence] in urine Negati ve normal Not Available Not Available 17:21:45 10/03/19 25 10/03/2024 Drugs ident ified in Urine by Scree n metho d phencyclidin e [presence] in urine Negati ve normal Not Available Not Available 17:21:45 10/03/19 25 10/03/2024 Drugs ident ified in Urine by Scredandre n metho d cannabinoids [presence] in urine Positi ve Not Available Not Available 17:21:45 10/03/19 25 10/03/2024 Urina lysis compl ete W Refle x Cultu re panel - Urine color of urine by auto Color of urine normal Not Available Not Available 17:21:45 10/03/19 25 10/03/2024 Urina lysis compl ete W Refle x Cultu re panel - Urine appearance of urine Urine specim en Not Available Not Available 17:21:45 10/03/19 25 10/03/2024 Urina lysis compl ete W Refle x Cultu re panel - Urine specific gravity of urine by test strip 1.022 1 low: 1.001h igh: 1.03 normal Not Available Not Available 10/23/2024 17:21:45 10/03/19 25 10/03/2024 Urina lysis compl ete W Refle x Cultu re panel - Urine pH of urine by test strip 5.5 pH_un its low: 5pH unitsh igh: 9pH units normal Not Available Not Available 10/23/2024 17:21:45 10/03/19 25 10/03/2024 Urina lysis compl ete W Refle x Cultu re panel - Urine leukocytes [#/volume] in urine by test strip Leukoc yte estera se measur ement text: negati ve normal Not Available Not Available 10/23/2024 17:21:45 10/03/19 25 10/03/2024 Urina lysis compl ete W Refle x Cultu re panel - Urine nitrite [presence] in urine by test strip Labora tory test findin g text: negati ve normal Not Available Not Available 10/23/2024 17:21:45 10/03/19 25 10/03/2024 Urina lysis compl ete W Refle x Cultu re panel - Urine protein [mass/volume ] in urine by test strip 30 mg/dL text: negati ve Not Available Not Available 10/23/2024 17:21:45 10/03/19 25 10/03/2024 Urina lysis compl ete W Refle x Cultu re panel - Urine glucose [moles/volum e] in urine by test strip Labora tory test findin g text: normal normal Not Available Not Available 10/23/2024 17:21:45 10/03/19 25 10/03/2024 Urina lysis compl ete W Refle x Cultu re panel - Urine ketones [moles/volum e] in urine by test strip 10 mg/dL text: negati ve Not Available Not Available 10/23/2024 17:21:45 10/03/19 25 10/03/2024 Urina lysis compl ete W Refle x Cultu re panel - Urine urobilinogen [mass/volume ] in urine by test strip Urobil inogen measur ement, urine text: normal normal Not Available Not Available 10/23/2024 17:21:45 10/03/19 25 10/03/2024 Urina lysis compl ete W Refle x Cultu re panel - Urine bilirubin.to ilia [mass/volume ] in urine by test strip Urine dipsti ck for biliru bin text: negati ve normal Not Available Not Available 10/23/2024 17:21:45 10/03/19 25 10/03/2024 Urina lysis compl ete W Refle x Cultu re panel - Urine erythrocytes [#/volume] in urine by test strip Urine dipsti ck for blood text: negati ve normal Not Available Not Available 10/23/2024 17:21:45 10/03/19 25 10/03/2024 Urina lysis compl ete W Refle x Cultu re panel - Urine leukocytes [#/area] in urine sediment by automated count Leukoc ytes in urine low: 0/[hpf ]high: 8/[hpf ] normal Not Available Not Available 10/23/2024 17:21:45 10/03/19 25 10/03/2024 Urina lysis compl ete W Refle x Cultu re panel - Urine erythrocytes [#/area] in urine sediment by automated count Blood in urine low: 0/[hpf ]high: 4/[hpf ] normal Not Available Not Available 10/23/2024 17:21:45 10/03/19 25 10/03/2024 Urina lysis compl ete W Refle x Cultu re panel - Urine bacteria [presence] in urine by automated Urine findin g normal Not Available Not Available 17:21:45 10/03/19 25 10/03/2024 Urina lysis compl ete W Refle x Cultu re panel - Urine mucus [#/area] in urine sediment by automated count Urine findin g Not Available Not Available 17:21:45 10/03/19 25 10/03/2024 Urina lysis compl ete W Refle x Cultu re panel - Urine epithelial cells.squamo us [#/area] in urine sediment by automated count Urine findin g normal Not Available Not Available 17:21:45 10/03/19 25 10/03/2024 Creat ine kinas e [Enzy matic activ ity/v olume ] in Serum or Plasm a creatine kinase [enzymatic activity/vol ume] in serum or plasma 503 U/L low: 55U/Lh igh: 170U/L high Not Available Not Available 10/23/2024 17:21:46 10/03/19 25 10/03/2024 Magne sium [Mass /volu me] in Serum or Plasm a magnesium [mass/volume ] in serum or plasma 1.8 mg/dL low: 1.6mg/ dLhigh : 2.3mg/ dL normal Not Available Not Available 10/23/2024 17:21:45 10/03/19 25 10/03/2024 Compr ehens terrell metab olic 1999 panel - Serum or Plasm a sodium [moles/volum e] in blood 140 mmol/ L low: 137mmo l/Lhig h: 145mmo l/L normal Not Available Not Available 10/23/2024 17:21:45 10/03/19 25 10/03/2024 Compr ehens terrell metab olic 1999 panel - Serum or Plasm a potassium [moles/volum e] in serum or plasma 4.3 mmol/ L low: 3.5mmo l/Lhig h: 5.1mmo l/L normal Not Available Not Available 10/23/2024 17:21:45 10/03/19 25 10/03/2024 [facility] Imagineer Systemsens terrell metab olic 1999 panel - Serum or Plasm a chloride [moles/volum e] in serum or plasma 107 mmol/ L low: 98mmol /Lhigh : 107mmo l/L normal Not Available Not Available 10/23/2024 17:21:45 10/03/19 25 10/03/2024 Compr Imagineer Systemsens terrell metab olic 1999 panel - Serum or Plasm a carbon dioxide, total [moles/volum e] in serum or plasma 17 mmol/ L low: 22mmol /Lhigh : 30mmol /L low Not Available Not Available 10/23/2024 17:21:45 10/03/19 25 10/03/2024 Compr [employer] System[employer] terrell metab olic 1999 panel - Serum or Plasm a anion gap in serum or plasma 20.3 mmol/ L low: 14mmol /Lhigh : 22mmol /L normal Not Available Not Available 10/23/2024 17:21:45 10/03/19 25 10/03/2024 [facility] [employer] Systemsens terrell GüvenRehberi olic 1999 panel - Serum or Plasm a glucose [mass/volume ] in serum or plasma 120 mg/dL low: 70mg/d Lhigh: 99mg/d L high Not Available Not Available 10/23/2024 17:21:45 10/03/19 25 10/03/2024 Compr Imagineer Systemsens terrell metab olic 1999 panel - Serum or Plasm a urea nitrogen [mass or moles/volume ] in serum or plasma 15 mg/dL low: 8mg/dL high: 19mg/d L normal Not Available Not Available 10/23/2024 17:21:45 10/03/19 25 10/03/2024 [facility] Adventi terrell GüvenRehberi olic 1999 panel - Serum or Plasm a creatinine [mass/volume ] in serum or plasma 1.23 mg/dL low: 0.66mg /dLhig h: 1.25mg /dL normal Not Available Not Available 10/23/2024 17:21:45 10/03/19 25 10/03/2024 Compr Imagineer Systemsens terrell GüvenRehberi olic 2000 panel - Serum or Plasm a glomerular filtration rate/1.73 sq M.predicted [volume rate/area] in serum, plasma or blood >60 normal Not Available Not Available 10/14 17:21:45 10/03/19 25 10/03/2024 Compr ehens terrell metab olic 1999 panel - Serum or Plasm a alkaline phosphatase [enzymatic activity/vol ume] in serum or plasma 70 U/L low: 38U/Lh igh: 126U/L normal Not Available Not Available 10/23/2024 17:21:45 10/03/19 25 10/03/2024 Compr ehens terrell metab olic 1999 panel - Serum or Plasm a alanine aminotransfe rase [enzymatic activity/vol ume] in serum or plasma 37 U/L low: 0U/Lhi gh: 50U/L normal Not Available Not Available 10/23/2024 17:21:45 10/03/19 25 10/03/2024 Compr ehens terrell metab olic 1999 panel - Serum or Plasm a aspartate aminotransfe rase [enzymatic activity/vol ume] in serum or plasma 43 U/L low: 15U/Lh igh: 46U/L normal Not Available Not Available 10/23/2024 17:21:45 10/03/19 25 10/03/2024 Compr ehens terrell metab olic 1999 panel - Serum or Plasm a bilirubin.to ilia [mass/volume ] in serum or plasma 0.8 mg/dL low: 0.2mg/ dLhigh : 1.3mg/ dL normal Not Available Not Available 10/23/2024 17:21:45 10/03/19 25 10/03/2024 Compr [employer]er Systemsens terrell metab olic 1999 panel - Serum or Plasm a calcium [mass/volume ] in serum or plasma 9.9 mg/dL low: 8.4mg/ dLhigh : 10.2mg /dL normal Not Available Not Available 10/23/2024 17:21:45 10/03/19 25 10/03/2024 Compr ehens terrell metab olic 1999 panel - Serum or Plasm a protein [mass/volume ] in serum or plasma 7.9 g/dL low: 6.3g/d Lhigh: 8.2g/d L normal Not Available Not Available 10/23/2024 17:21:45 10/03/19 25 10/03/2024 Compr ehens terrell metab olic 2000 panel - Serum or Plasm a albumin [mass/volume ] in serum or plasma 5 g/dL low: 3.4g/d Lhigh: 5g/dL normal Not Available Not Available 10/23/2024 17:21:45 10/03/19 25 10/03/2024 Compr ehens terrell metab olic 1999 panel - Serum or Plasm a globulin [mass/volume ] in serum 2.9 g/dL low: 2.6g/d Lhigh: 4.2g/d L normal Not Available Not Available 10/23/2024 17:21:45 10/03/19 25 10/03/2024 Compr ehens terrell metab olic 1999 panel - Serum or Plasm a albumin/glob ulin [mass ratio] in serum or plasma 1.7 ratio low: 1ratio high: 2ratio normal Not Available Not Available 10/23/2024 17:21:45 10/03/19 25 10/03/2024 Minor ol [Mass /volu me] in Serum or Plasm a ethanol [mass/volume ] in serum or plasma <10 low: 0mg/dL high: 10mg/d L normal Not Available Not Available 10/23/2024 17:21:45 10/03/19 25 10/03/2024 CBC W Auto Diffe renti al panel - Blood leukocytes [#/volume] in blood by automated count 18.7 x10'3 /uL low: 4.2x10 '3/uLh igh: 10.8x1 0'3/uL high Not Available Not Available 10/23/2024 17:21:45 10/03/19 25 10/03/2024 CBC W Auto Diffe renti al panel - Blood erythrocytes [#/volume] in blood by automated count 4.87 x10'6 /uL low: 4.1x10 '6/uLh igh: 5.8x10 '6/uL normal Not Available Not Available 10/23/2024 17:21:45 10/03/19 25 10/03/2024 CBC W Auto Diffe renti al panel - Blood hemoglobin [mass/volume ] in blood 15.8 g/dL low: 13.2g/ dLhigh : 17g/dL normal Not Available Not Available 10/23/2024 17:21:45 10/03/19 25 10/03/2024 CBC W Auto Diffe renti al panel - Blood hematocrit [volume fraction] of blood by automated count 47.7 % low: 39.3%h igh: 50% normal Not Available Not Available 10/23/2024 17:21:45 10/03/19 25 10/03/2024 CBC W Auto Diffe renti al panel - Blood MCV [entitic volume] by automated count 97.9 fL low: 80fLhi gh: 97fL high Not Available Not Available 10/23/2024 17:21:45 10/03/19 25 10/03/2024 CBC W Auto Diffe renti al panel - Blood MCH [entitic mass] by automated count 32.4 pg low: 27pghi gh: 33pg normal Not Available Not Available 10/23/2024 17:21:45 10/03/19 25 10/03/2024 CBC W Auto Diffe renti al panel - Blood MCHC [mass/volume ] by automated count 33.1 g/dL low: 31g/dL high: 36g/dL normal Not Available Not Available 10/23/2024 17:21:45 10/03/19 25 10/03/2024 CBC W Auto Diffe renti al panel - Blood erythrocyte distribution width [ratio] 14 % low: 11.8%h igh: 15.5% normal Not Available Not Available 10/23/2024 17:21:45 10/03/19 25 10/03/2024 CBC W Auto Diffe renti al panel - Blood platelets [#/volume] in blood by automated count 279 x10'3 /uL low: 150x10 '3/uLh igh: 400x10 '3/uL normal Not Available Not Available 10/23/2024 17:21:45 10/03/19 25 10/03/2024 CBC W Auto Diffe renti al panel - Blood platelet mean volume [entitic volume] in blood by automated count 9.6 fL low: 9fLhig h: 12.4fL normal Not Available Not Available 10/23/2024 17:21:45 10/03/19 25 10/03/2024 CBC W Auto Diffe renti al panel - Blood neutrophils/ 100 leukocytes in blood 82.7 % low: 39%hig h: 72% high Not Available Not Available 10/23/2024 17:21:45 10/03/19 25 10/03/2024 CBC W Auto Diffe renti al panel - Blood lymphocytes/ 100 leukocytes in blood 9.9 % low: 16%hig h: 47% low Not Available Not Available 10/23/2024 17:21:45 10/03/19 25 10/03/2024 CBC W Auto Diffe renti al panel - Blood monocytes/10 0 leukocytes in blood 6.4 % low: 5%high : 12% normal Not Available Not Available 10/23/2024 17:21:45 10/03/19 25 10/03/2024 CBC W Auto Diffe renti al panel - Blood eosinophils [#/volume] in blood 0.1 % low: 1%high : 7% low Not Available Not Available 10/23/2024 17:21:45 10/03/19 25 10/03/2024 CBC W Auto Diffe renti al panel - Blood basophils/10 0 leukocytes in blood 0.4 % low: 0%high : 2% normal Not Available Not Available 10/23/2024 17:21:45 10/03/19 25 10/03/2024 CBC W Auto Diffe renti al panel - Blood immature granulocytes /100 leukocytes in blood 0.5 % low: 0%high : 0.5% normal Not Available Not Available 10/23/2024 17:21:45 10/03/19 25 10/03/2024 CBC W Auto Diffe renti al panel - Blood neutrophils [#/volume] in blood 15.5 x10'3 /uL low: 1.5x10 '3/uLh igh: 8x10'3 /uL high Not Available Not Available 10/23/2024 17:21:45 10/03/19 25 10/03/2024 CBC W Auto Diffe renti al panel - Blood lymphocytes [#/volume] in blood 1.85 x10'3 /uL low: 1.07x1 0'3/uL high: 3.43x1 0'3/uL normal Not Available Not Available 10/23/2024 17:21:45 10/03/19 25 10/03/2024 CBC W Auto Diffe renti al panel - Blood monocytes [#/volume] in blood 1.19 x10'3 /uL low: 0.29x1 0'3/uL high: 0.99x1 0'3/uL high Not Available Not Available 10/23/2024 17:21:45 10/03/19 25 10/03/2024 CBC W Auto Diffe renti al panel - Blood eosinophils [#/volume] in blood 0.02 x10'3 /uL low: 0.02x1 0'3/uL high: 0.53x1 0'3/uL normal Not Available Not Available 10/23/2024 17:21:45 10/03/19 25 10/03/2024 CBC W Auto Diffe renti al panel - Blood basophils [#/volume] in blood 0.08 x10'3 /uL low: 0.01x1 0'3/uL high: 0.08x1 0'3/uL normal Not Available Not Available 10/23/2024 17:21:45 10/03/19 25 10/03/2024 CBC W Auto Diffe renti al panel - Blood immature granulocytes [#/volume] in blood 0.09 x10'3 /uL low: 0x10'3 /uLhig h: 0.05x1 0'3/uL high Not Available Not Available 10/23/2024 17:21:45 10/03/19 25 10/03/2024 CBC W Auto Diffe renti al panel - Blood nucleated erythrocytes /100 leukocytes [ratio] in blood 0 % high: 0% normal Not Available Not Available 10/23/2024 17:21:45 10/03/19 25 10/03/2024 CBC W Auto Diffe renti al panel - Blood nucleated erythrocytes [#/volume] in blood by automated count 0 x10'3 /uL normal Not Available Not Available 10/23/19 17:21:45 10/05/19 25 10/05/2024 levET IRAce vergara [Mass /volu me] in Serum or Plasm a levetiraceta m [mass/volume ] in serum or plasma <2.0 text: 10.0-4 0.0 low Not Available Not Available 10/23/2024 17:21:46 09/26/19 21 09/20/2020 elect roenc ephal ogram No observ ation record ed. nancy Eckert MD [address] [facility], [place], [address], 10/23/2020 10:46:29 10/28/19 21 10/27/2020 CT, head, w/o contr ast No observ ation record ed. [facility] [address] [place], [address], 06/01/2022 16:17:54 11/14/19 CT, head, w/o contr ast No observ ation record ed. [facility] On [facility] [address] [facility] [place], [address], 06/01/2022 16:17:54 02/10/20 21 02/09/2021 CT, cervi susan spine , w/o contr ast No observ ation record ed. [facility] [address] [place], [address], 06/01/2022 16:17:54 06/25/20 21 06/24/2021 CT, head, w/o contr ast No observ ation record ed. [facility] ([facility] Scheduling) [address] [place], [address], 06/01/2022 16:17:54 07/23/20 21 06/24/2021 CT, head, w/o contr ast No observ ation record ed. [facility] ([facility] Scheduling) [address] [place], [address], 06/01/2022 16:17:54 06/21/20 22 06/21/2022 CT, head, w/o contr ast No observ ation record ed. [facility] On [facility] Orders [address] [place], [address], 06/25/2022 14:35:43 07/15/20 22 07/15/2022 CT, head, w/o contr ast No observ ation record ed. [address], [place], [address], 12/28/2022 16:32:42 08/19/20 22 08/19/2022 CT, brain , w/o contr ast No observ ation record ed. [facility] On [facility] Orders [address] [place], [address], 12/28/2022 16:32:41 Result Notes None recorded. Problems Name Problem SNOMED Code Status Onset Date Resolution Date Notes Provider Name and Address Organization Details Recorded Time Anxiety 66843913 Active 2016 Not Available [facility] 4 00:04:33 Unable to control anger 904461445 Active 2017 Not Available [facility] 4 00:04:33 Noncompliance with medication regimen 752140467 Active 2017 Not Available [facility] 4 00:04:33 Epileptic seizure 106593824 Active Not Available [facility] 4 00:04:33 Acute pharyngitis 982959826 Active Not Available [facility] 4 00:04:33 General examination of patient Active 2021 Not Available [facility] 4 00:04:33 Seizure 84616160 Active Not Available [facility] 4 21:40:26 Brief reactive psychosis 7838068 Active Not Available [facility] 4 00:04:33 Epilepsy, not refractory 687072281 Active Not Available [facility] 4 00:04:33 Nicotine dependence 44745558 Active 2022 Not Available [facility] 4 00:04:33 Seizure disorder 113992098 Active 2016 Not Available [facility] 4 00:04:33 Cocaine dependence in remission 233145847 Active 2016 Not Available [facility] 4 00:04:33 Cannabis dependence, continuous 326398807 Active 2016 Not Available [facility] 4 00:04:33 Problem Notes None recorded. Procedures Surgical History Date Name Laterality Status Provider Name and Address Organization Details Recorded Time Appendectomy completed Jade gonzalez [place] - [facility] 04/15/2017 10:26:40 Imaging Results Imaging Date Name Status LastModified by Organization Details LastModified Time 09/20/2020 electroencephalogram completed [facility] Vinh Eckert MD [address], [place], [address], 10/23/2020 10:46:29 10/27/2020 CT, head, w/o contrast completed [facility] [address] [place], [address], 06/01/2022 16:17:54 11/13/2020 CT, head, w/o contrast completed [facility] Add On Lab Orders [address] [place], [address], 06/01/2022 16:17:54 02/09/2021 CT, cervical spine, w/o contrast completed [facility] [address] [place], [address], 06/01/2022 16:17:54 06/24/2021 CT, head, w/o contrast completed [facility] ([facility] Call Scheduling) [address] [place], [address], 06/01/2022 16:17:54 06/24/2021 CT, head, w/o contrast completed [facility] (One Call Scheduling) [address] [place], [address], 06/01/2022 16:17:54 06/21/2022 CT, head, w/o contrast completed [facility] On Lab Orders [address] [place], [address], 06/25/2022 14:35:43 07/15/2022 CT, head, w/o contrast completed [facility] [address], [place], [address], 12/28/2022 16:32:42 08/19/2022 CT, brain, w/o contrast completed [facility] Add On Lab Orders [address], [place], [address], 12/28/2022 16:32:41 Procedure Notes None recorded. Medical Equipment None Reported. Allergies Allergen ID Allergen Name Allergen Category Reaction Reaction Severity Criticality Documentation Date Start Date Code Code System Note Provider Name and Address Organization Details Recorded Time 592147 No known allergy (situatio n) Not available Not available Not available Not available 06/01/2022 97627 [id number] SNOMED Not Available Not Available Not Available No known drug allergies Medications Name Sig Start Date Stop Date Status Note LastModified by Organization Details LastModified Time neomycin-p olymyxin-h ydrocort 3.5 mg/mL-10,0 00 unit/mL-1 % ear solution 03/29 completed Not Available Not Available Not Available Keppra 500 mg tablet medicatio n:Keppra 500 mg tablet do se:0.0 route:PO frequenc y:BID 06/01 completed Not Available Not Available Not Available Lidocaine Viscous 2 % mucosal solution Take 15 mL every 4 hours by oral route as needed for 2 days. 10/23 completed Not Available Not Available Not Available lorazepam 2 mg/mL injection solution 2 mg by injection route. 02/20 completed Not Available Not Available Not Available sulfametho xazole 800 mg-trimeth oprim 160 mg tablet Take 1 tablet twice a day by oral route for 10 days. 11/18 completed Not Available Not Available Not Available ofloxacin 0.3 % ear drops INSTILL 10 DROPS (1.5 MG) INTO the left EAR BY OTIC ROUTE 2 TIMES PER DAY for ten days 07/14 completed Not Available Not Available Not Available hydroxyzin e HCl 25 mg tablet Take 1 tablet every day by oral route as needed for 30 days. 07/19 completed I never got that one filled Not Available Not Available Not Available sodium chloride 0.9 % intravenou s solution 100 mL by intraven. route. 02/20 completed Not Available Not Available Not Available lorazepam 1 mg tablet 07/14 completed Not Available Not Available Not Available levofloxac in 750 mg tablet Take 1 tablet every day by oral route as directed for 5 days. 06/01 completed Not Available Not Available Not Available amoxicilli n 875 mg-potassi um clavulanat e 125 mg tablet Take 1 tablet every 12 hours by oral route for 7 days. 07/14 completed Not Available Not Available Not Available nitrofuran toin monohydrat e/macrocry stals 100 mg capsule 07/05 completed Not Available Not Available Not Available levetirace vergara 1,000 mg tablet TAKE 1 TABLET BY MOUTH TWICE DAILY DIRECTED 2022 active Not Available Not Available Not Avai lable ProAir HFA 90 mcg/actuat ion aerosol inhaler Inhale 2 puffs every 4 hours by inhalatio n route as needed for 30 days. 01/17 completed Not Available Not Available Not Available levetirace vergara 500 mg/5 mL intravenou s solution 1000 mg by intraven. route. 02/20 completed Not Available Not Available Not Available levetirace vergara ER 500 mg tablet,ext ended release 24 hr active Not Available Not Available Not Available Vitals Date Recorded Body height Provider Name an d Address Organization Details Last Updated DateTime 10/23/2020 171.45 cm Jade Diehl [place] - [facility] 021 10:25:41 Date Recorded Body height Body mass index (BMI) Body weight Heart rate Respiratory rate Oxygen saturation Oxygen saturation in Arterial blood by Pulse oximetry Systolic blood pressure Diastolic blood pressure Provider Name and Address Organization Details Last Updated DateTime 2 171.45 cm 22.9 kg/m2 63598.1 1 g 68 /min 14 /min 99 % 99 % 114 mm[Hg] 70 mm[Hg] Jade Diehl [place] [facility] 2 16:14:51 Date Recorded Body height Body mass index (BMI) Body weight Heart rate Oxygen saturation Oxygen saturation in Arterial blood by Pulse oximetry Respiratory rate Systolic blood pressure Diastolic blood pressure Provider Name and Address Organization Details Last Updated DateTime 2 171.45 cm 23.8 kg/m2 23724.6 6 g 72 /min 99 % 99 % 14 /min 110 mm[Hg] 76 mm[Hg] Jade Diehl [place] [facility] 2 14:17:42 Date Recorded Body height Body mass index (BMI) Body weight Oxygen saturation Oxygen saturation in Arterial blood by Pulse oximetry Heart rate Respiratory rate Systolic blood pressure Diastolic blood pressure Provider Name and Address Organization Details Last Updated DateTime 3 171.45 cm 24.2 kg/m2 66782 g 96 % 96 % 64 /min 14 /min 104 mm[Hg] 76 mm[Hg] Jade Diehl MA [facility] 3 16:25:22 Date Recorded Body height Body mass index (BMI) Body weight Heart rate Oxygen saturation Oxygen saturation in Arterial blood by Pulse oximetry Respiratory rate Systolic blood pressure Diastolic blood pressure Provider Name and Address Organization Details Last Updated DateTime 3 171.45 cm 23.9 kg/m2 52055.8 2 g 60 /min 96 % 96 % 16 /min 116 mm[Hg] 70 mm[Hg] Jade Diehl MA [facility] 3 16:04:43 Social History Question Answer Notes LastModified by Organizat ion Details LastModified Time Tobacco Smoking Status Current Every Day Smoker Jade Diehl MA [facility] 04/15/2017 10:26:02 Is Your Home Air Conditioned? Yes Information not available 10/23/2020 What Is Your Level Of Alcohol Consumption? None Information not available 10/23/2020 Are You Blind Or Do You Have Difficulty Seeing? No Information not available 10/23/2020 Are You A Caregiver? No Information not available 10/23/2020 What Type Of Manager Truck Do You Use? None Information not available 10/23/2020 In The 14 Days Before Symptom Onset, Have You Had Close Contact With A Laboratory-confir med COVID-19 While That Case Was Ill? No Information not available 10/23/2020 Have You Been To An Area Known To Be High Risk For COVID-19? No Information not available 10/23/2020 Are You Deaf Or Do You Have Serious Difficulty Hearing? No Information not available 10/23/2020 Do You Or Have You Ever Used E-cigarettes Or Vape? Never Used Electronic Cigarettes Information not available 07/05/2020 Do You Have An Electrostatic Air Filter? No Information not available 10/23/2020 Have You Been Exposed To Chemicals Or Toxins? Yes Information not available 10/23/2020 Have You Been Exposed To Heavy Metals? No Information not available 10/23/2020 Have There Been Any Changes To Your Family Or Social Situation? No Information no t available 10/23/2020 Are There Any Guns Present In Your Home? No Information not available 10/23/2020 Do You Have A Humidifier? No Information not available 10/23/2020 Do You Use Insect Repellent Routinely? No Information not available 10/23/2020 Do You Have Moisture Problems In Your Home? No Information not available 10/23/2020 What Was The Date Of Your Most Recent Tobacco Screening? 06/01/2023 Information not available 06/01/2023 Do You Have Any Pets? Yes Information not available 10/23/2020 Do You Use Your Seat Belt Or Car Seat Routinely? Yes Information not available 10/23/2020 Do You Have Smoke And Carbon Monoxide Detectors In Your Home? Yes Information not available 10/23/2020 At What Age Did You Start Smoking Tobacco? 17 Information not available 06/01/2022 Do You Or Have You Ever Used Smokeless Tobacco? Never Used Smokeless Tobacco Information not available 07/05/2020 Are There Any Smokers In Your House? Yes Information not available 10/23/2020 How Much Tobacco Do You Smoke? 1 PPD Information not available 04/15/2017 Do You Use Any Illicit Or Recreational Drugs? No Information not available 10/23/2020 Do You Use Sunscreen Routinely? No Information not available 10/23/2020 Has Tobacco Cessation Counseling Been Provided? Yes Information not available 10/23/2020 On What Date Was Tobacco Cessation Counseling Provided? 06/01/2023 Information not available 06/01/2023 How Many Years Have You Smoked Tobacco? 15 Information not available 04/15/2017 Have You Recently Traveled Abroad? No Information not available 10/23/2020 Do You Or Have You Ever Used Any Other Forms Of Tobacco Or Nicotine? No Information not available 06/01/2022 Sex: Male Functional Status Question Answer Note LastModified by Organization D etails LastModified Time Are you able to care for yourself? Yes Information n ot available 10/23/2020 Mental Status None recorded. Family History Nothing Reported. Medical History Condition Response Coronary Artery Disease N Other N Atrial Fibrillation N High Blood Pressure N Kidney or Bladder Problems N Thyroid Problems N GI Problems N Depression N COPD N Blood Clots N Skin Problems N Anemia N Heart Attack (HI) N Anxiety Disorder N Diabetes N Muscle, Joint, or Bone Problems N Seizures/Epilepsy Y Acid Reflux (GERD) N Cancer N Stroke N Asthma N Allergies N High Cholesterol N Hepatitis N Liver Disease N Headaches N Heart Failure N Osteoporosis N Immunizations Vaccine Type Date Status Note Provider Nam e and Address Organization Details Recorded Time Influenza, split virus, trivalent, preservative 4 completed Not Available [facility] 09/21/2023 00:04:33 Tdap 2 completed Not Available [facility] 09/21/2023 00:04:33 SARS-COV-2 (COVID-19) vaccine, UNSPECIFIED 2 completed Not Available [facility] 09/21/2023 00:04:33 Influenza, split virus, quadrivalent, preservative 7 completed Not Available [facility] 09/30/2019 02:34:20 Tdap 7 completed Not Available [facility] 09/30/2019 02:50:27 Influenza, split virus, quadrivalent, PF 8 completed Not Available [facility] 09/30/2019 02:36:31 Influenza, split virus, quadrivalent, preservative 0 completed Jade Diehl MA [facility], [place] - [facility] 07/18/2020 16:52:09 Influenza, split virus, quadrivalent, preservative 2 completed Kimi Sanchez MD Attn: [address] [place], [address], [facility] 06/25/2022 15:14:21 Past Encounters Encounter ID Performer Location Encounter Start Date Encounter Closed Date Diagnosis/Indication Diagnosis SNOMED-CT Code Diagnosis ICD10 Code Diagnosis Note [id number] MD [facility] (Adult Med) [address] [place] [address] [id number] 0 04/15/2017 09:59:38 04/19/2017 09:27:07 Seizure disorder 565382203 G40.909 The etiology is unclear but his polysubsta nce use may be a culprit. He should not drive, climb ladders or operate machinery. EEG and evaluation by the neurologis t Adult [facility] th examination 678828078 Z00.01 Polysubstance abuse 4452 26154 F19.10 Tobacco de pendence syndrome 92139595 F17.982 [id number] Kimi Sanchez MD [facility] (Adult Med) [address] [place] [address] [id number] 06/07/2017 15:14:06 06/07/2017 16:36:39 Seizure disorder 845741609 G40.909 Uncontroll ed seizures, it is also possible that he may have underlying panic disorder. He needs an evaluation by the neurologis t, I am unable to release him to go back to work. Influenza vaccine needed 5203510522 106 Z23 Administra tion of diphtheria, pertussis, and tetanus vaccine 643812574 Z23 [id number] Kimi Sanchez MD [facility] (Adult Med) [address] [place] [address] [id number] 0 07/19/2017 10:05:17 07/19/2017 10:45:53 Seizure disorder 922002886 G40.909 Uncontroll ed seizures due to non compliance , he needs an evaluation by the neurologis t, I am unable to release him to go back to work. The ER records from his 05/24/2017 visit suggested that he stopped the medication , this is not what he told me when he was here 06/07/2017. Anxiety 42357824 F41.9 His girlfriend suggested a BZD, I have prescribed Vistaril PRN and discussed the side effects. Cocaine de pendence in remission 234813293 F14.21 Cannabis d ependence, continuous 371090545 F12.20 Noncomplia nce with treatment 4525217 Z91.19 The ER records suggest non compliance , he was prescribed Keppra #30 and 1 RF on 06/07/2017, he states that he had no refills left and ran out of meds. [id number] MD [facility] (Adult Med) [address] [place] [address] [id number] 0 08/30/2017 12:00:31 08/30/2017 12:40:47 Seizure disorder 001003471 G40.909 Stable and seizure free on Keppra, he however needs to see the neurologis t, his appointmen t is in September 2017. He should avoid driving, climbing ladders and operating machinery. Labs as previously ordered Anxiety 63311786 F41.9 He refused to try the Vistaril that was prescribed on the last visit. [id number] MD [facility] (Adult Med) [address] [place] [address] [id number] 0 11/29/2017 11:46:14 11/29/2017 12:10:56 Seizure disorder 957322388 G40.909 Stable, he had a single seizure since his last vist in August. Nicotine dependence 5629 4008 F17.200 Persistent cough 9070376 02 R05 Allergy?, doubt asthma [id number] MD [facility] (Adult Med) [address] [place] [address] [id number] 0 01/17/2018 14:04:04 01/18/2018 09:07:52 Seizure disorder 774237935 G40.507 [id number] MD [facility] (Adult Med) [address] [place] [address] [id number] 0 03/31/2018 12:06:20 03/31/2018 12:55:52 Infective otitis externa 03229718 H60.399 Seizure disorder 4770559 02 G40.013 [id number] MD [facility] (Adult Med) [address] [place] [address] [id number] 0 07/14/2018 14:56:28 07/14/2018 16:17:29 Administration of influenza vaccine 72764964 Z23 Seizure disorder 7151601 02 G40.909 He denies hallucinat ions but he clearly does not like the way he makes him feel.I have discussed switching him to Dilantin, he has declined. He will see his neurologis t. Dr Anne and continue the Keppra for now.I have explained to him that Ativan is not appropriat e for maintenanc e. Noncomplia nce with medication regimen 697000644 Z91.14 Unable to control anger 139159415 R45.4 He has declined a referral to the therapist [id number] MD [facility] (Adult Med) [address] [place] [address] [id number] 0 10/06/2018 17:00:03 10/07/2018 08:40:12 Abscess of thigh 6927790 L02.419 An incision and drainage was done in the ER there is considerab le improvemen t in the area of induration when compared to the area marked, at the minimum a 75% reduction [id number] MD [facility] (Adult Med) [address] [place] [address] [id number] 0 07/05/2020 08:21:30 07/08/2020 07:26:19 Seizure disorder 470304567 G40.909 He clearly does not like the way Keppra makes him feel.I have previously discussed switching him to Dilantin, he has declined. He will need to see the neurologis t.Continue the Keppra for now. Administra tion of influenza vaccine 30632986 Z23 Hyperlipid emia screening 812879378 Z13.151 [id number] MD [facility] (Adult Med) [address] [place] [address] [id number] 0 07/18/2020 16:01:16 07/19/2020 07:28:02 Pharyngitis 812722180 J02.9 Administra tion of influenza vaccine 32898971 Z23 Dysphagia 11025952 R13.1 0 There appears to be some improvemen t, I do not see a need for direct visualizat ion at this time. [id number] MD [facility] (Adult Med) [address] [place] [address] [id number] 0 10/23/2020 09:07:11 10/24/2020 09:04:26 Upper respiratory infection 75146963 J06.9 Nicotine dependence 5629 4008 F17.200 Pain in throat 474723507 R07.0 Seizure disorder 5294534 02 G40.909 He clearly does not like the way Keppra makes him feel.I have previously discussed switching him to Dilantin, he has declined. He will need to see the neurologis t.Continue the Keppra for now. [id number] MD [facility] (Adult Med) [address] [place] [address] [id number] 0 06/01/2022 15:57:53 06/02/2022 08:25:20 General examination of patient 851032433 Z00.01 Epileptic seizure 070322 000 G40.909 Influenza vaccination declined 180566866 Z28.21 [id number] MD [facility] (Adult Med) [address] [place] [address] [id number] 0 06/25/2022 14:11:47 06/26/2022 15:49:29 Administration of influenza vaccine 55598490 Z23 Serum crea tinine above reference range 525877913 R79.89 Seizure disorder 4410251 02 G40.909 He was reminded to take his Keppra as prescribed .Follow up with the neurologis t as scheduled. 04/29/2022 ee the eRx.Appt. 06/01/2022 04/03/2022 ee the messageApp ointment 04/29/2022 Previous OVHe clearly does not like the way Keppra makes him feel.I have previously discussed switching him to Dilantin, he has declined. He will need to see the neurologis t.Continue the Keppra for now. 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 Noncomplia nce with medication regimen 116739254 Z91.148 Health Concerns Section Related Observation LastModified by Organization Detai ls LastModified Time None Recorded Concern Status LastModified by Organization Details LastModified Time None Recorded Advance Directives Directive None Recorded Payers Encounter Date Sequence Insurance Name Policy Number Policy Villagran Covered Member ID Villagran Member ID Guarantor Name 10/23/2020 2 [facility] (MEDICAID HMO) [id number] Gian Brunsonjanieobi [id number] Gian Brunsonjanieobi 10/23/2020 2 [place] [facility] Gian Astudillo [id number] Gian Brunsonxobi 06/01/2022 2 [facility] (MEDICAID HMO) [id number] 03 Gian Brunsonjanieobi [id number] Gian Brunsonxobi 06/01/2022 1 [facility] [id number] Gian Brunsonjanieobi [id number] Gian Brunsonxobi 06/25/2022 2 [facility] (MEDICAID HMO) [id number] Gian Astudillo [id number] Gian Brunsonxobi 06/25/2022 1 [facility] [id number] Gian Brunsonjanieobi [id number] Gian Brunsonxobi 12/28/2022 2 [facility] (MEDICAID HMO) [id number] Gian Brunsonxobi [id number] Gian Brunsonxobi 12/28/2022 1 [place] [id number] Gian Brunsonxobi [id number] Gian Brunsonxobi 06/01/2023 2 [facility] (MEDICAID HMO) [id number] Gian Astudillo [id number] Gian Brunsonxobi 06/01/2023 1 [facility] [id number] Gian Brunsonjanieobi [id number] Gian Astudillo Notes Date Note Type Note Provider Name and Address Organization Details Recorded Time 10/23/2020 text/html Phone visit due to the Covid 19 pandemic A real sore throat Mr Astudillo states that at the end of 2019, he was in the ER with a seizure, he has also had a sore throat with no fever, cough or SOB. Although it appears that the symptoms he discussed with the MA include a cough. Kimi Sanchez MD Attn: Accounting[address] [place], [address], [facility] 10/23/2020 10:57:47 06/01/2022 text/html SeizureReported bypatient.Onset/Timin g:better Context:warnings Aggravating Factors:triggers Alleviating Factors:medications that helped Associated Symptoms:postictal fatigue/tiredness I have an appointment coming up July, Mr Astudillo returns, in the interim he has had multiple ER visits with seizures, some attributed to non compliance with his Keppra. Since his 05/27/2022 ER visit, he has been compliant with his Keppra, seizure free and back at work Kimi Sanchez MD Attn: Accounting[address] [facility], [place], [address], [facility] 06/01/2022 17:53:44 06/25/2022 text/html SeizureReported bypatient.Severity:pr ogressively worsening Onset/Timing:worse Alleviating Factors:medications that helped Associated Symptoms:amnesia;post ictal confusion Follow up visit I am not sure Mr Astudillo returns, he had another breakthrough seizure which he cannot explain why this happened. He admits to taking his Keppra once a day, he states that he was unaware that the instructions state that it should be taken twice a day, he also has an appointment with the neurologist, Dr Mccurdy(?). Kimi Sanchez MD Attn: Accounting[address] [place], [address], [facility] 06/25/2022 15:15:08 12/28/2022 text/html SeizureReported bypatient.Onset/Timin g:better Alleviating Factors:medications that helped Check up Yet to have one since the first of the year Seizure free since 09/13/2022. Mr Astudillo returns, in the interim, he has had multiple ER visits with breakthrough seizures and MS changes after head trauma. He has since established care with a new neurologist and he has been seizure free since the beginning of the year. Kimi Sanchez MD Attn: Accounting[address] [facility], [place], [address], [facility] 12/28/2022 16:58:00 06/01/2023 text/html Not too bad I miss them sometimes with work I take care of brkervinyers Multiple ER visits with break through seizure due to non compliance with his medication regimen. He is doing otherwise well and follows up with the neurologist, Dr Eckert. He apparently at times forgets to take his medication due to his work schedule and at times takes some with him in his lunch box. Kimi Sanchez MD Attn: Accounting[address] [facility] , [place], [address], [facility] 06/01/2023 16:46:48 06/01/2023 text/html SeizureReported bypatient.Severity:pr ogressively worsening Onset/Timing:worse Alleviating Factors:medications that helped Kimi Sanchez MD Attn: Accounting[address] [facility], [place], [address], [facility] 06/01/2023 16:46:48
[2024-11-25 10:49] LABS: Levetiracetam Keppra 10.1 mcg/mL (6.0-46.0)
== END 2024-11-23 13:21 | disposition home or self-care (01) ==
LOC: ANHLAB 13:20
PROVIDERS: PCP Internal Medicine Infectious Disease; Visit Provider Psychiatry & Neurology Neurology
DX: G40.909 Epilepsy, unspecified, not intractable, without status epilepticus (principal)
CPT/HCPCS: 36415; 80177